=== PATIENT | male | born 1935 | race Caucasian/White ===

== ENCOUNTER 2016-07-21 10:39 | Emergency (ER) | payer MEDICARE, BC ==
[2016-07-21 12:26] VITALS: BP 130/64
--- NOTE | 2016-07-21 12:34 | UC ---
Ryann Vieira Claudia, scribed for Ann Singer MD on 07/21/16 at 1211 . General HPI - HPI Summary HPI Summary: 81 year old female presents to the [facility] with confusion. His son notes that a friend of the pt called him today and notes that the pt seemed to be more confused/"foggy" than usual . The son then went to the pt house and states that the pt was sleeping but his breathing seemed abnormal and decided he should come to [facility]. The pt does admit to 3 days of confusion and he states that "it just came on". Pt son states that the pt came back from [place] in May and notes that he has been having more difficulty especially with ambulation since. Pt denies any rashes, pain. Pt has a fever at [facility] but it is unknown if he has had one in the past. Pt notes that about 3 weeks ago he strained a muscle on his left chest when he bend over but he notes the muscle strain is feeling better. Level 5 caveat- confusion - History of Current Complaint Chief Complaint: UCGeneralIllness Stated Complaint: SOB CONFUSED Time Seen by Provider: 07/21/16 11:46 Hx Obtained From: Patient Onset/Duration: Gradual Onset, Lasting Days, Still Present - Allergy/Home Medications Allergies/Adverse Reactions: Allergies Allergy/AdvReac Type Severity Reaction Status Date / Time No Known Allergies Allergy Verified 07/21/16 11:09 Home Medications: Home Medications Atorvastatin* [Lipitor*] 10 mg PO 1700 07/21/16 [History Confirmed 07/21/16] Gemfibrozil TAB* [Lopid TAB*] 600 mg PO DAILY 07/21/16 [History Confirmed 07/21] PMH/Surg Hx/FS Hx/Imm Hx Previously Healthy: Yes Cardiovascular History Of: Reports: Cardiac Disorders - "hardened arteries.", Hypertension - used to take htn meds, was dc'd by md - Surgical History Surgical History: None - Family History Known Family History: Positive: Unknown - Level 5- confusion - Social History Occupation: Retired Lives: Alone Alcohol Use: None Substance Use Type: None Smoking Status (MU): Never Smoked Tobacco Review of Systems Constitutional: Fever Skin: Negative Eyes: Negative ENT: Negative Respiratory: Negative Cardiovascular: Negative Gastrointestinal: Negative Genitourinary: Negative Motor: Negative Neurovascular: Negative Musculoskeletal: Negative Neurological: Other - confusion Psychological: Negative All Other Systems Reviewed And Are Negative: Yes Physical Exam Triage Information Reviewed: Yes Completion Of Physical Exam Limited Due To: Other - Hard of hearing. Vital Signs: Initial Vital Signs Temp 100.9 F 07/21/16 10:58 Pulse 121 07/21/16 10:58 Resp 18 07/21/16 10:58 Pulse Ox 96 07/21/16 10:58 Vital Signs Reviewed: Yes Eye Exam: Normal - + arcus senilus ENT Exam: Other - muc membranes a little dry. No stridor. Facial expressions grossly symmetric. Neck exam: Normal - supple for age Respiratory Exam: Other - Bibasilar crackles R>L. No miki wheeze. Cardiovascular Exam: Other - HR approx 110's bpm, several irregular beats during examinaion, correlates with L rad pulse. Non-diaphoretic. Abdominal Exam: Normal Abdomen Description: Positive: Nontender - soft, ND, nontender. Musculoskeletal Exam: Other - ambulates slowly, per son his gait is "wobbly" compared with usual. Moves all 3 ext's. Distal ext's shiney ant tib, minimal edema, warm to touch. Neurological Exam: Other - Conversing easily, appopriately. + flight of ideas ( although +UTE, so difficult to ascertain). Unclear to what extent oriented (to person / place). Psychological Exam: Normal Skin Exam: Normal - no rash visible or reported. Diagnostics - EKG Cardiac Rate: NL - sinus 108 beats/min, MS 208 QTC 427 no old EKG for comparison Cardiac Rhythm: Sinus: Normal - no old EKG for comparison Course/Dx - Course Course Of Treatment: No new problems while in [facility]. D/w pt and son. Recommend ED evaluation and management. EMS offered and encouraged. They politely but firmly decline, son will drive POV. D/w ED. ([facility]). - Differential Dx - Multi-Symptom Provider Diagnoses: Mental status change. Weakness - Physician Notifications Discussed Patient Care With: Carlota Waggoner at [facility] [place] been made aware of the pt at 11am. The pt son will drive them to [facility] by private car even after encouraged to go by EMS Discharge - Discharge Plan Condition: Stable Disposition: TRANS HIGHER LVL OF CARE FAC Discharge Disposition Comment: [facility] via private car The documentation as recorded by the Ryann loera Claudia accurately reflects the service I personally performed and the decisions made by me, Ann Singer MD.
== END 2016-07-21 12:44 | disposition short-term general hospital (02) ==
LOC: UCEAST 10:39
DX: R41.82 Altered mental status, unspecified (principal); R53.1 Weakness
CPT/HCPCS: 81003; 93005; 99203; G0463

== ENCOUNTER 2016-07-21 13:04 | Inpatient (IN) | payer BC, MEDICARE ==
[2016-07-21] MEDS ORDERED: NS 0.9% 1000 ML* 1,000 ML IV ONE ×2 (13:59→15:20)
[2016-07-21] MEDS ORDERED: NS 0.9% 1000 ML* 1,000 ML IV SCH (14:00)
[2016-07-21 14:28] LABS: Hematocrit 27 % (42-52); Hemoglobin 8.9 g/dl (14.0-18.0); Mean Corpuscular HGB Conc 33 g/dl (31-36); Mean Corpuscular Hemoglobin 33 pg (27-31); Mean Corpuscular Volume 100 fL (80-94); Mean Platelet Volume 10 um3 (7.4-10.4); Red Blood Count 2.69 10^6/ul (4.0-5.4); Red Cell Distribution Width 15 % (10.5-15); White Blood Count 17.9 10^3/ul (3.5-10.8)
[2016-07-21 14:30] LABS: Comments Flag Yes
[2016-07-21 14:31] LABS: Add Diff/Slide Review? Slide Review Added
--- NOTE | 2016-07-21 14:36 | RAD ---
HISTORY: Fever COMPARISONS: None VIEWS:1: Single frontal portable view of the chest at 2:15 PM FINDINGS: LINES AND TUBES: None. CARDIOMEDIASTINAL SILHOUETTE: The cardiomediastinal silhouette is normal for portable technique. PLEURA: The costophrenic angles are sharp. No pleural abnormalities are noted. LUNG PARENCHYMA: There is confluent alveolar opacification of the right midlung field ABDOMEN: The upper abdomen is clear. There is no subphrenic gas. BONES AND SOFT TISSUES: No bone or soft tissue abnormalities are noted. IMPRESSION: RIGHT MIDLUNG CONSOLIDATION. RECOMMEND FOLLOW-UP UNTIL RESOLUTION TO EXCLUDE UNDERLYING PULMONARY PARENCHYMAL PATHOLOGY
[2016-07-21 14:45] LABS: ALT 33 U/L (7-52); Albumin 3.5 g/dL (3.2-5.2); Alkaline Phosphatase 139 U/L (34-104); Ammonia 39 mol/L (16-53); BUN/Creatinine Ratio 19.4 (8-20); Blood Urea Nitrogen 39 mg/dL (6-24); CO2 Carbon Dioxide 22 mmol/L (22-32); Calcium 9.4 mg/dL (8.6-10.3); Chloride 101 mmol/L (101-111); Creatine Kinase 88 U/L (10-223); EGFR Non-African American 31.9 (>60); Globulin 2.9 g/dL (2-4); Glucose 105 mg/dL (70-100); Lipase 27 U/L (11.0-82.0); Sodium 132 mmol/L (133-145); Total Protein 6.4 g/dL (6.4-8.9)
[2016-07-21] MEDS ORDERED: Acetaminophen TAB* 325 MG PO ONE (14:45)
[2016-07-21] MEDS ORDERED: Azithromycin IV(*) 500 MG in NS 0.9% 250 ML* 250 ML IVPB ONE ×2 (14:46→16:00)
[2016-07-21] MEDS ORDERED: cefTRIAXone(*) 1 GM in NS 0.9% 50 ML* 50 ML IVPB ONE (14:46)
[2016-07-21 14:48] LABS: B Type Natriuretic Peptide 275 pg/mL
[2016-07-21 14:56] LABS: Acetaminophen < 15 mcg/mL; Alcohol < 10 mg/dL (<10); Salicylate < 2.50 mg/dL (<30)
[2016-07-21 14:58] LABS: Immature Granulocytes 6 % (0-9); Neutrophil % 69 % (38-83)
[2016-07-21 14:59] LABS: Basophilic Stippling 1+; Macrocytosis 1+
[2016-07-21 15:06] LABS: TSH (Thyroid Stimulating Horm) 0.93 mcIU/mL (0.34-5.60)
[2016-07-21] MEDS ORDERED: Acetaminophen TAB* 325 MG PO PRN (15:20)
[2016-07-21] MEDS ORDERED: Ondansetron INJ* 2 MG/ML VIAL IV PRN (15:20)
[2016-07-21] MEDS ORDERED: Albuterol 2.5 MG/3 ML NEB.SOL* (0.083%) INH PRN (15:27)
[2016-07-21 15:49] LABS: Total Iron Binding Capacity 245 mcg/dL (250-450); Transferrin 175 mg/dL (203-362)
[2016-07-21 16:10] LABS: Ferritin 496.4 ng/mL (24-336)
[2016-07-21 16:14] LABS: Folate > 20.00 ng/mL (>3.99)
[2016-07-21 16:15] LABS: Vitamin B12 1250 pg/mL (180-914)
[2016-07-21] MEDS ORDERED: Aspirin Low Dose CHEW TAB* 81 MG PO ONE (16:16)
--- NOTE | 2016-07-21 16:17 | ED ---
Radha Vieira Erika, scribed for Dylon Johnston MD on 07/21/16 at 1435 . Complex/Multi-Sys Presentation - HPI Summary HPI Summary: Patient is an 81-year-old male presenting to the ED from [facility] with a CC of generalized weakness. Patient states that he has been feeling weak with unsteady gait since 07/17/2016. Son reports that pt appears to be having difficulty breathing, but pt denies SOB and chest pain. Pt also notes fever. Pt denies cough, chest congestion, vomiting, diarrhea, and abdominal pain. Pt lives alone. - History Of Current Complaint Chief Complaint: EDShortnessOfBreath Time Seen by Provider: 07/21/16 13:44 Hx Obtained From: Patient, Family/Natural History Collections Curator - Son Onset/Duration: Gradual Onset, Lasting Days, Still Present Timing: Constant Severity Currently: Moderate Severity Initially: Mild Associated Signs And Symptoms: Positive: SOB - per son, pt denies, Other - Unsteady gait. Negative: Chest Pain, Vomiting, Diarrhea, Abdominal Pain - Allergies/Home Medications Allergies/Adverse Reactions: Allergies Allergy/AdvReac Type Severity Reaction Status Date / Time No Known Allergies Allergy Verified 07/21/16 11:09 Home Medications: Home Medications Atorvastatin* [Lipitor*] 40 mg PO DAILY 07/21/16 [History Confirmed 07/21/16] Ramipril CAP* [Altace CAP*] 2.5 mg PO DAILY 07/21/16 [History Confirmed 07/21/16 ] PMH/Surg Hx/FS Hx/Imm Hx Endocrine/Hematology History: Denies: Hx Diabetes Cardiovascular History: Reports: Hx Hypertension - used to take htn meds, was dc 'd by Infectious Disease History: Denies: Traveled Outside the [place] in Last 30 Days - Family History Known Family History: Positive: Other - father of alcoholic liver cirrhosis Negative: Cardiac Disease, Diabetes - Social History Occupation: Retired Lives: Alone Alcohol Use: None Hx Substance Use: No Substance Use Type: Reports: None Hx Tobacco Use: No Smoking Status (MU): Never Smoked Tobacco Review of Systems Positive: Fever Negative: Chest Pain Positive: Shortness Of Breath - per son, pt denies. Negative: Cough Negative: Abdominal Pain, Vomiting, Diarrhea Neurological: Other - unsteady gait Positive: Weakness All Other Systems Reviewed And Are Negative: Yes Physical Exam Triage Information Reviewed: Yes Vital Signs On Initial Exam: Initial Vitals Temp Pulse Resp BP Pulse Ox 100.2 F 112 20 134/56 98 07/21/16 13:07 07/21/16 13:07 07/21/16 13:07 07/21/16 13:07 07/21/16 13:07 Vital Signs Reviewed: Yes Appearance: Positive: No Pain Distress, Ill-Appearing - Mild to moderately Skin: Positive: Warm, Dry, Pale Head/Face: Positive: Normal Head/Face Inspection Eyes: Positive: EOMI, EDI ENT: Positive: Normal ENT inspection, TMs normal, Other - Oral mucosa moist Neck: Positive: Supple, Nontender Respiratory/Lung Sounds: Positive: Clear to Auscultation, Decreased Breath Sounds - on the right side Cardiovascular: Positive: Tachycardia Abdomen Description: Positive: Nontender, Soft Bowel Sounds: Positive: Present Musculoskeletal: Positive: Normal, Strength/ROM Intact. Negative: Edema Left, Edema Right Neurological: Positive: Normal, Sensory/Motor Intact, Alert, Oriented to Person Place, Time Psychiatric: Positive: Affect/Mood Appropriate Diagnostics - Vital Signs Vital Signs Temp Pulse Resp BP Pulse Ox 07/21/16 13:10 100.2 F 114 20 134/56 98 07/21/16 13:07 100.2 F 112 20 134/56 98 - Laboratory Lab Results: Lab Results 07/21/16 07/21/16 07/21/16 Range/Units 14:15 14:15 14:15 WBC 17.9 H (3.5-10.8) 10^3/ul RBC 2.69 L (4.0-5.4) 10^6/ul Hgb 8.9 L (14.0-18.0) g/dl Hct 27 L (42-52) % MCV 100 H (80-94) fL MCH 33 H (27-31) pg MCHC 33 (31-36) g/dl RDW 15 (10.5-15) % Plt Count 230 (150-450) 10^3/ul MPV 10 (7.4-10.4) um3 Immature Gran % (Auto) 6 (0-9) % Neut % (Auto) 83.5 H (38-83) % Lymph % (Auto) 5.9 L (25-47) % Boone % (Auto) 9.9 H (1-9) % Eos % (Auto) 0.1 (0-6) % Baso % (Auto) 0.6 (0-2) % Absolute Neuts (auto) 15.0 H (1.5-7.7) 10^3/ul Absolute Lymphs (auto) 1.0 (1.0-4.8) 10^3/ul Absolute Monos (auto) 1.8 H (0-0.8) 10^3/ul Absolute Eos (auto) 0 (0-0.6) 10^3/ul Absolute Basos (auto) 0.1 (0-0.2) 10^3/ul Absolute Nucleated RBC 0.02 10^3/ul Neutrophils % 69 (38-83) % Band Neutrophils % 6 (0-8) % Lymphocytes % 13 L (25-47) % Monocytes % 12 (0-13) % Nucleated RBC % 0.1 Normal RBC Morphology Not Reportable Basophilic Stippling 1+ Macrocytosis 1+ INR (Anticoag Therapy) 1.43 H (0.89-1.11) APTT 28.5 (26.0-36.3) seconds D-Dimer, Quantitative 349 H (Less Than 230) ng/mL Sodium 132 L (133-145) mmol/L Potassium TNP Chloride 101 (101-111) mmol/L Carbon Dioxide 22 (22-32) mmol/L Anion Gap TNP BUN 39 H (6-24) mg/dL Creatinine 2.01 H (0.67-1.17) mg/dL Est GFR ( Amer) 41.0 (>60) Est GFR (Non-Af Amer) 31.9 (>60) BUN/Creatinine Ratio 19.4 (8-20) Glucose 105 H (70-100) mg/dL Lactic Acid (0.5-2.0) mmol/L Calcium 9.4 (8.6-10.3) mg/dL Magnesium TNP Iron Pending TIBC 245 L (250-450) mcg/dL % Saturation Pending Unsat Iron Binding Pending Ferritin 496.4 H (24-336) ng/mL Total Bilirubin 1.10 H (0.2-1.0) mg/dL AST TNP ALT 33 (7-52) U/L Alkaline Phosphatase 139 H (34-104) U/L Ammonia (16-53) mol/L Total Creatine Kinase 88 (10-223) U/L CK-MB (CK-2) 16.9 H (0.6-6.3) ng/mL Troponin I 1.20 H* (<0.04) ng/mL C-Reactive Protein 318.00 H (< 5.00) mg/L B-Natriuretic Peptide ( - 100) pg/mL Total Protein 6.4 (6.4-8.9) g/dL Albumin 3.5 (3.2-5.2) g/dL Globulin 2.9 (2-4) g/dL Albumin/Globulin Ratio 1.2 (1-3) Lipase 27 (11.0-82.0) U/L Vitamin B12 1250 H (180-914) pg/mL Folate > 20.00 (>3.99) ng/mL TSH 0.93 (0.34-5.60) mcIU/mL Salicylates < 2.50 (<30) mg/dL Acetaminophen < 15 mcg/mL Serum Alcohol < 10 (<10) mg/dL 07/21/16 07/21/16 Range/Units 14:15 14:15 WBC (3.5-10.8) 10^3/ul RBC (4.0-5.4) 10^6/ul Hgb (14.0-18.0) g/dl Hct (42-52) % MCV (80-94) fL MCH (27-31) pg MCHC (31-36) g/dl RDW (10.5-15) % Plt Count (150-450) 10^3/ul MPV (7.4-10.4) um3 Immature Gran % (Auto) (0-9) % Neut % (Auto) (38-83) % Lymph % (Auto) (25-47) % Boone % (Auto) (1-9) % Eos % (Auto) (0-6) % Baso % (Auto) (0-2) % Absolute Neuts (auto) (1.5-7.7) 10^3/ul Absolute Lymphs (auto) (1.0-4.8) 10^3/ul Absolute Monos (auto) (0-0.8) 10^3/ul Absolute Eos (auto) (0-0.6) 10^3/ul Absolute Basos (auto) (0-0.2) 10^3/ul Absolute Nucleated RBC 10^3/ul Neutrophils % (38-83) % Band Neutrophils % (0-8) % Lymphocytes % (25-47) % Monocytes % (0-13) % Nucleated RBC % Normal RBC Morphology Basophilic Stippling Macrocytosis INR (Anticoag Therapy) (0.89-1.11) APTT (26.0-36.3) seconds D-Dimer, Quantitative (Less Than 230) ng/mL Sodium (133-145) mmol/L Potassium Chloride (101-111) mmol/L Carbon Dioxide (22-32) mmol/L Anion Gap BUN (6-24) mg/dL Creatinine (0.67-1.17) mg/dL Est GFR ( Amer) (>60) Est GFR (Non-Af Amer) (>60) BUN/Creatinine Ratio (8-20) Glucose (70-100) mg/dL Lactic Acid 1.7 (0.5-2.0) mmol/L Calcium (8.6-10.3) mg/dL Magnesium Iron TIBC (250-450) mcg/dL % Saturation Unsat Iron Binding Ferritin (24-336) ng/mL Total Bilirubin (0.2-1.0) mg/dL AST ALT (7-52) U/L Alkaline Phosphatase (34-104) U/L Ammonia 39 (16-53) mol/L Total Creatine Kinase (10-223) U/L CK-MB (CK-2) (0.6-6.3) ng/mL Troponin I (<0.04) ng/mL C-Reactive Protein (< 5.00) mg/L B-Natriuretic Peptide 275 H ( - 100) pg/mL Total Protein (6.4-8.9) g/dL Albumin (3.2-5.2) g/dL Globulin (2-4) g/dL Albumin/Globulin Ratio (1-3) Lipase (11.0-82.0) U/L Vitamin B12 (180-914) pg/mL Folate (>3.99) ng/mL TSH (0.34-5.60) mcIU/mL Salicylates (<30) mg/dL Acetaminophen mcg/mL Serum Alcohol (<10) mg/dL Result Diagrams: 07/21/16 14:15 05/23/17 14:15 Lab Statement: Any lab studies that have been ordered have been reviewed, and results considered in the medical decision making process. - Radiology CXR Radiology Interpretation Completed By: Radiologist - IMPRESSION: RIGHT MIDLUNG CONSOLIDATION. RECOMMEND FOLLOW-UP UNTIL RESOLUTION TO EXCLUDE UNDERLYING PULMONARY PARENCHYMAL PATHOLOGY - EKG 14:38 Cardiac Rate: Tachycardia - at 109 bpm EKG Rhythm: Sinus Tachycardia ST Segment: Normal Ectopy: None Complex Multi-Symp Course/Dx Course Of Treatment: CRITICAL CARE TIME LESS THAN 30 MINUTES Assessment/Plan: ADMIT HOSPITALIST STABLE - Diagnoses Provider Diagnoses: Pneumonia, Troponin level elevated - Physician Notifications Discussed Care Of Patient With: Dr. Aguilar (hospitalist) at 14:51 - agrees to admit Discharge - Discharge Plan Condition: Guarded Disposition: ADMITTED TO [facility] documentation as recorded by the Radha loera Erika accurately reflects the service I personally performed and the decisions made by me, Dylon Johnston MD.
[2016-07-21 17:09] LABS: Urine Bacteria Absent (Absent); Urine Bilirubin Negative (Negative); Urine Glucose Negative (Negative); Urine Nitrite Negative (Negative)
[2016-07-21 17:42] LABS: Iron < 15 ug/dL (50-212)
[2016-07-21] MEDS: NS 0.9% 1000 ML* 1,000 ML IV SCH (18:07)
[2016-07-21] MEDS: Aspirin EC Low Dose* 81 MG TAB.EC PO SCH (18:08)
[2016-07-21] MEDS: predniSONE TAB* 20 MG PO SCH (18:08)
[2016-07-21] MEDS: Heparin VIAL(*) 5000 UNITS/ML VIAL (FIVE THOUSAND) SUBCUT SCH (21:34)
--- NOTE | 2016-07-21 22:37 | HP ---
HISTORY AND PHYSICAL: DATE OF ADMISSION: 07/21/16 PRIMARY CARE PROVIDER: Dr. López. ATTENDING PHYSICIAN WHILE IN THE HOSPITAL: Dr. Juan Aguilar* (report being dictated by Ken Bills NP). CHIEF COMPLAINT: 1. Weakness. 2. Not feeling well. 3. Fever. HISTORY OF PRESENT ILLNESS: Mr. Paredes is an 81-year-old male patient who carries a history of hypertension and hyperlipidemia. The patient came in to the ER today stating that the last several days he has not been feeling well. He has been feeling weak. He has been feeling tired. He just has not been feeling himself. The son noted today that the patient was on the phone with a family friend. He was acting confused acting himself, acting lethargic and drowsy. He says that he was concerned and brought him to [facility]. At [facility], there was concern and he was sent to the hospital for evaluation. The patient says that he has not had any chest pain. The son did note that he looked more short of breath today. There has not been any reports of cough, but there was report that over the weekend, he needed to turn the heat up in his house and needed to cover up with several blankets because he just could not get warm. He denies having any dysuria. No abdominal pain. Denies any back pain. Denies having any chest pain. He does state that he feels weak and has not been feeling well and he says his appetite has been down. He came in to the ER today. He was found to be febrile. He was found to have an elevated white count. He was found to be tachycardic. In addition to this, he was found to have pneumonia. Because of these findings, we were asked to evaluate for admission. PAST MEDICAL HISTORY: Significant for: 1. Hypertension. 2. Hyperlipidemia. PAST SURGICAL HISTORY: Denied. HOME MEDICATIONS: Include: 1. Ramipril 2.5 mg p.o. daily although he says he has stopped this. 2. Lopid 600 mg p.o. b.i.d. 3. Lipitor 40 mg daily. ALLERGIES TO MEDICATIONS: Include no known drug allergies. FAMILY HISTORY: The father had a history of cirrhosis. Mother's history was reviewed and noncontributory. SOCIAL HISTORY: He does not smoke. He lives alone. Surrogate decision maker is his son, Kip. He does not drink alcohol. REVIEW OF SYSTEMS: There is no documented fever. He denied having any significant weight change. There was no double vision. There was no ear discharge. He denied having any rhinorrhea. There was no sore throat. There is no thyroid enlargement. Denied having any chest pain. There is no orthopnea. There is no nocturnal dyspnea. There is no abdominal pain. There was no nausea. No vomiting. No dysuria. No frequency. There was no seizure. No loss of consciousness. There was dyspnea on exertion. Review of 14 systems completed, all others negative. PHYSICAL EXAMINATION GENERAL: At this time, Mr. Paredes is an 81-year-old male patient. He is sitting in the ER stretcher. He does not appear to be in any acute distress. He is awake and he is alert and oriented x3. VITAL SIGNS: Blood pressure 134/51 with a pulse of 110, respirations were 20, O2 sat 98% on room air. His temperature was 101.4. HEENT: Head is atraumatic and normocephalic. Eyes: EOMs are intact. His sclerae are anicteric and not pale. Throat: Oral mucosa did appear to be dry. No oropharyngeal erythema. NECK: Supple. LUNGS: He had crackles noted in the right upper and right middle lobe. He had equal diaphragmatic expansion. HEART: Sounds S1, S2. Regular rate and rhythm. He is tachycardic. ABDOMEN: Soft, flat, and nontender. Bowel sounds present. EXTREMITIES: Pulses were 2+ throughout. Able to move all 4 extremities with 5/ 5 strength. NEUROLOGIC: The patient is awake, he is alert, and he is oriented x3. His tongue is midline. Paralegal Assistant are equal. No gross focal deficits. SKIN: Intact. LABORATORY DATA AND DIAGNOSTIC STUDIES: Today revealed WBC of 17.9, RBC of 2.69, hemoglobin of 8.9, hematocrit of 27, and his platelet count was 230. The INR was 1.43. His PTT was 28.5. His D-dimer was 349. Sodium 132, potassium pending, chloride 101, bicarb 22, BUN 39, creatinine of 2, glucose of 105, his lactic was 1.7, calcium of 9.4. His mag is pending. His total bili 1.1, AST pending, ALT 33, alk phos 139. Ammonia 39. CK 88. His CK-MB was 16.2. His troponin was 1.20. CRP of 318. Albumin of 3.5. Toxicology was negative. He did have a chest x-ray obtained today, my impression: He had a significant consolidation in the right middle lobe. Radiology read it as right mid lung consolidation. Recommend followup until resolution to exclude underlying pulmonary parenchymal pathology. He did have an EKG obtained today as well, which showed sinus tachycardia, rate of 109. He had no ST elevations or T-wave inversions. It was reviewed to the previous EKG, it is similar. Old medical records were reviewed. ASSESSMENT AND PLAN: Mr. Paredes is an 81-year-old male patient coming into the ER today with complaints of weakness and upon evaluation found to be septic related to pneumonia. He will be admitted under inpatient status for: 1. Severe sepsis secondary to pneumonia: At this point, he appears to be in acute kidney injury. He has demand ischemia and his troponin is elevated. My plan will be to go ahead and give him an additional liter of a fluid for total 2 L bolus and normal saline at 100 an hour for another liter. We will put him on Rocephin and azithromycin. He has had blood cultures sent. We will try to get a Streptococcus pneumoniae antigen. I will send a Legionella antigen as well. We will try to get a urine, but again, I believe the source is respiratory and I will get a flu swab and we will continue to follow. 2. Acute kidney injury probably related to prerenal causes, but I will send off a FENa. He is not having any abdominal pain. I will get a bladder scan to make sure this has not been postobstructive, but most likely it is probably related to prerenal. It may be some acute tubular necrosis secondary to the sepsis. My plan would be to hydrate him, reevaluate the labs tomorrow, avoid nephrotoxic agent, and we will follow. 3. Elevated troponin: It is probably demand ischemia. He is chest pain free. His EKG has been stable. We will trend these and get an echo and follow and I will start him on an aspirin. 4. Pneumonia: Again, he will be placed on p.r.n. albuterol. I have ordered flutter valve. We will try to get sputum cultures. We will get urine antigens from the patient. In addition to this, we will try to get the sputum cultures. 5. Anemia: Again, I do not have his baseline labs, but his hemoglobin is 8.9. He does have a macrocytic anemia. I will send off iron studies and a Hemoccult, but he denied any black tarry stools. 6. Hyperlipidemia: We will continue his statin. 7. Hypertension: Blood pressure is in the 130s. We will hold the SUKUMAR inhibitor in the setting of acute illness. We will follow. 8. DVT prophylaxis: He is high risk. He will be placed on heparin subcu. 9. Code status: He wished to be a full code. 10. Fluids, electrolytes, and nutrition: He can have a regular diet. 11. Elevated D-dimer: It is probably elevated in the setting of sepsis. I do not think we need to do CTA frankly, the contrast dye he cannot have have because of his creatinine. We will just monitor him. He is not hypoxic. There are no other signs of a pulmonary embolus. TIME SPENT: Time spent on the admission was approximately 60 minutes; greater than half the time was spent [id number] with the patient obtaining my history and physical, other half the time spent going over the plan of care with the patient and implementing plan of care. I did discuss the plan of care with my attending, Dr. Aguilar; he is in agreement. KEN BILLS NP CC: Dr. López* [id number]/[facility] #: [id number] EUN
[2016-07-22 05:33] LABS: Hematocrit 24 % (42-52); Hemoglobin 8.2 g/dl (14.0-18.0); Mean Corpuscular HGB Conc 34 g/dl (31-36); Mean Corpuscular Hemoglobin 34 pg (27-31); Mean Corpuscular Volume 101 fL (80-94); Mean Platelet Volume 9 um3 (7.4-10.4); Red Blood Count 2.42 10^6/ul (4.0-5.4); Red Cell Distribution Width 15 % (10.5-15); White Blood Count 9.7 10^3/ul (3.5-10.8)
[2016-07-22] MEDS: NS 0.9% 1000 ML* 1,000 ML IV SCH (05:36)
[2016-07-22] MEDS: Heparin VIAL(*) 5000 UNITS/ML VIAL (FIVE THOUSAND) SUBCUT SCH ×3 (05:37→21:33)
[2016-07-22 05:47] LABS: BUN/Creatinine Ratio 26.2 (8-20); Calcium 8.6 mg/dL (8.6-10.3); EGFR African American 51.9 (>60); EGFR Non-African American 40.3 (>60); Potassium 4.5 mmol/L (3.5-5.0)
[2016-07-22] MEDS: Atorvastatin* 40 MG TAB PO SCH (07:51)
[2016-07-22] MEDS: Aspirin EC Low Dose* 81 MG TAB.EC PO SCH (07:51)
[2016-07-22] MEDS: predniSONE TAB* 20 MG PO SCH (07:51)
[2016-07-22] MEDS ORDERED: Perflutren Lipid Microsphere* 3 ML VIAL ONE (10:02)
--- NOTE | 2016-07-22 11:35 | ECHO ---
Patient: JENISE MCDANIEL [facility] Rec#: [id number] : 1935 Date: 07/22/2016 Age: 81y Height: 177.8 cm / 70.0 in Weight: 74.84 kg / 164.9 lbs Sex: M BSA: 1.92 Room#: [facility] Admit Date#: 07/21/2016 Type: Inpatient Referring: Ken Antonio NP Reading: Margaret Villafana MD [employer] Director: Trista Mosher RDCS CC: Randall López MD Transthoracic Echocardiogram Indication: Respiratory Abnormality BP: 121/58 HR: 65 Rhythm: NSR Findings History: HLD,HTN,elevated troponins,sepsis. Technical Comments: The study is technically limited due to poor apical windows. Left Ventricle: The left ventricular chamber size is normal. There is no left ventricular hypertrophy. Global left ventricular wall motion and contractility are within normal limits.The very base of the inferior wall on 2 chamber with and without echo contrast shows a mild delay in systolic squeeze, varient of normal. The estimated ejection fraction is 50-55%. There is an E to A reversal in the mitral valve flow pattern suggestive of diastolic dysfunction.overall diastolic parameters most c/w mildly abnormal diastolic filling. Left Atrium: The left atrial chamber size is normal. Right Ventricle: The right ventricular cavity size is normal. The right ventricular global systolic function is normal. Right Atrium: The right atrial cavity size is normal. Aortic Valve: The aortic valve is trileaflet. The aortic valve leaflets are mildly thickened. There is no evidence of aortic regurgitation. There is no evidence of aortic stenosis. Mitral Valve: The mitral valve leaflets are mildly thickened. There is mild mitral regurgitation. There is no evidence of mitral stenosis. Tricuspid Valve: The tricuspid valve leaflets are normal. There is mild tricuspid regurgitation. No pulmonary hypertension is noted. There is no tricuspid stenosis. Pulmonic Valve: The pulmonic valve appears normal. There is trace to mild pulmonic regurgitation. There is no pulmonic stenosis. Pericardium: The pericardium appears normal. Aorta: There is mild dilatation of the ascending aorta. There is no dilatation of the aortic arch. There is mild dilatation of the aortic root. Pulmonary Artery: The main pulmonary artery is not well visualized. Contrast: Definity was used to optimize study. 4ml. was used. Intravenous contrast was used to enhance endocardial border definition. Conclusions Fair qulity study due to body habitus, echo enhancement used to optimize endocardial visualization. Global left ventricular wall motion and contractility are within normal limits, see text. The estimated ejection fraction is 50-55%. The diastolic parameters most c/w mildly abnormal diastolic filling. The right ventricular global systolic function is normal. The aortic valve leaflets are mildly thickened with normal function. There is mild mitral regurgitation. There is mild tricuspid regurgitation. There is mild dilatation of the ascending aorta: 3.8 cm. No prior echo to compare. Measurements Name Value Normal Range RVIDd (AP) 2D 2.3 cm (0.9 - 2.6) RVDdMajor (2D) 3 cm (2.2 - 4.4) RAd ISD 4CH 4.7 cm (3.4 - 4.9) RA (A4C)W 2.5 cm (2.9 - 4.6) IVSd (2D) 1.1 cm (0.6 - 1) LVPWd (2D) 1.1 cm (0.6 - 1) LVIDd (2D) 3.5 cm (3.6 - 5.4) LVIDs (2D) 2.8 cm - LV FS (2D) 19 % (25 - 45) Aortic Annulus 2.7 cm (1.4 - 2.6) Ao root diameter (2D) 3.8 cm (2.1 - 3.5) Ascending Ao 3.8 cm (2.1 - 3.4) Aortic arch 2.3 cm (1.8 - 3.4) Descending Ao 0.6 cm - LA dimension (AP) 2D 3.6 cm (2.3 - 3.8) LAd ISD 4CH 5.5 cm (2.9 - 5.3) LA ISD 4CH W 3.3 cm (2.5 - 4.5) Name Value Normal Range LA ESV SP 4CH (A/L) 50 ml - LA ESV SP 2CH (A/L) 59 ml - LA ESV BP (A/L) 57 ml - LA ESV BP (A/L) index 29.54 ml/m2 - LA ESV SP 4CH (MOD) 48 ml - LA ESV SP 2CH (MOD) 55 ml - Name Value Normal Range MV E-wave Vmax 1.1 m/sec - MV deceleration time 172 msec - MV A-wave Vmax 1.4 m/sec - MV E:A ratio 0.79 ratio - LV septal e' Vmax 0.1 m/sec - LV lateral e' Vmax 0.11 m/sec - LV E:e' septal ratio 11 ratio - LV E:e' lateral ratio 10 ratio - Name Value Normal Range AV Vmax 1.4 m/sec - AV VTI 40.1 cm - AV peak gradient 7.5 mmHg - AV mean gradient 6.22 mmHg - LVOT Vmax 1.2 m/sec - LVOT VTI 25 cm - LVOT peak gradient 6.01 mmHg - LVOT mean gradient 2.38 mmHg - Name Value Normal Range TR Vmax 2.2 m/sec - TR peak gradient 20 mmHg - RAP 8 mmHg - RVSP 28 mmHg - Name Value Normal Range PV Vmax 0.8 m/sec - PV peak gradient 2.56 mmHg -
[2016-07-22] MEDS: cefTRIAXone VIAL(*) 1,000 MG in NS 0.9% 50 ML* 50 ML IVPB SCH (15:46)
--- NOTE | 2016-07-22 16:25 | PN ---
Subjective Date of Service: 07/22/16 Interval History: Patient seen and examined at bedside. He reports "feeling fine." He denies CP, SOB but has not been up and moving much. Denies fever/chills or other acute complaint. Patient not requiring oxygen. He has been encouraged to get OOB and to ambulate with assist. Family History: Unchanged from Admission Social History: Unchanged from Admission Past Medical History: Unchanged from Admission Objective Active Medications: Acetaminophen (Tylenol Tab*) 650 mg PO Q4H PRN PRN Reason: FEVER/PAIN Albuterol (Ventolin 2.5 Mg/3 Ml Neb.Angely*) 2.5 mg INH Q2H PRN PRN Reason: SOB/WHEEZING Aspirin (Aspirin Ec Low Dose*) 81 mg PO DAILY [facility] Last Admin: 07/22/16 07:51 Dose: 81 mg Atorvastatin Calcium (Lipitor*) 40 mg PO DAILY [facility] Last Admin: 07/22/16 07:51 Dose: 40 mg Heparin Sodium (Porcine) (Heparin Vial(*)) 5,000 units SUBCUT Q8HR [facility] Last Admin: 07/22/16 13:38 Dose: 5,000 units Sodium Chloride (Ns 0.9% 1000 Ml*) 1,000 mls @ 100 mls/hr IV PER RATE [facility] Last Admin: 07/22/16 05:36 Dose: 100 mls/hr Ceftriaxone Sodium 1,000 mg/ (Sodium Chloride) 50 mls @ 200 mls/hr IVPB Q24H [facility] Last Admin: 07/22/16 15:46 Dose: 200 mls/hr Azithromycin 500 mg/ Sodium (Chloride) 250 mls @ 250 mls/hr IVPB Q24H [facility] Ondansetron HCl (Zofran Inj*) 4 mg IV Q6H PRN PRN Reason: NAUSEA Prednisone (Deltasone Tab*) 40 mg PO DAILY WITH MEAL [facility] Last Admin: 07/22/16 07:51 Dose: 40 mg Vital Signs 07/21/16 07/21/16 07/21/16 16:30 17:20 20:00 Temperature 98.8 F Pulse Rate 86 94 Respiratory 16 20 Rate Blood Pressure 112/47 119/63 (mmHg) O2 Sat by Pulse 92 95 Oximetry 07/21/16 07/22/16 07/22/16 20:34 00:12 03:36 Temperature 97.9 F 97.7 F 97.7 F Pulse Rate 76 69 70 Respiratory 20 16 20 Rate Blood Pressure 116/49 138/98 129/61 (mmHg) O2 Sat by Pulse 100 96 99 Oximetry 07/22/16 07/22/16 07/22/16 07:25 07:26 08:20 Temperature Pulse Rate 66 75 Respiratory 16 20 18 Rate Blood Pressure 121/58 (mmHg) O2 Sat by Pulse 99 94 Oximetry 07/22/16 07/22/16 11:13 15:23 Temperature 98.3 F 97.4 F Pulse Rate 91 88 Respiratory 20 16 Rate Blood Pressure 127/59 123/61 (mmHg) O2 Sat by Pulse 95 98 Oximetry Oxygen Devices in Use Now: None Appearance: Elderly male patient, lying in bed, NAD Eyes: PERRLA Ears/Nose/Mouth/Throat: Clear Oropharnyx, Mucous Membranes Moist Neck: NL Appearance and Movements; NL JVP Respiratory: Symmetrical Chest Expansion and Respiratory Effort, - - RML and RLL crackles Cardiovascular: NL Sounds; No Murmurs; No JVD, RRR Abdominal: NL Sounds; No Tenderness; No Distention Extremities: No Edema Neurological: Alert and Oriented x 3, NL Muscle Strength and Tone Lines/Tubes/Other Access: Clean, Dry and Intact Peripheral IV Nutrition: Taking PO's Result Diagrams: 07/22/16 05:00 07/22/16 05:01 Additional Lab and Data: Lab Results 07/21/16 07/21/16 07/21/16 Range/Units 14:15 14:15 14:15 WBC 17.9 H (3.5-10.8) 10^3/ul RBC 2.69 L (4.0-5.4) 10^6/ul Hgb 8.9 L (14.0-18.0) g/dl Hct 27 L (42-52) % MCV 100 H (80-94) fL MCH 33 H (27-31) pg MCHC 33 (31-36) g/dl RDW 15 (10.5-15) % Plt Count 230 (150-450) 10^3/ul MPV 10 (7.4-10.4) um3 Immature Gran % (Auto) 6 (0-9) % Neut % (Auto) 83.5 H (38-83) % Lymph % (Auto) 5.9 L (25-47) % Hampton % (Auto) 9.9 H (1-9) % Eos % (Auto) 0.1 (0-6) % Baso % (Auto) 0.6 (0-2) % Absolute Neuts (auto) 15.0 H (1.5-7.7) 10^3/ul Absolute Lymphs (auto) 1.0 (1.0-4.8) 10^3/ul Absolute Monos (auto) 1.8 H (0-0.8) 10^3/ul Absolute Eos (auto) 0 (0-0.6) 10^3/ul Absolute Basos (auto) 0.1 (0-0.2) 10^3/ul Absolute Nucleated RBC 0.02 10^3/ul Neutrophils % 69 (38-83) % Band Neutrophils % 6 (0-8) % Lymphocytes % 13 L (25-47) % Monocytes % 12 (0-13) % Nucleated RBC % 0.1 Normal RBC Morphology Not Reportable Basophilic Stippling 1+ Macrocytosis 1+ INR (Anticoag Therapy) 1.43 H (0.89-1.11) APTT 28.5 (26.0-36.3) seconds D-Dimer, Quantitative 349 H (Less Than 230) ng/mL Sodium 132 L (133-145) mmol/L Potassium TNP Chloride 101 (101-111) mmol/L Carbon Dioxide 22 (22-32) mmol/L Anion Gap TNP BUN 39 H (6-24) mg/dL Creatinine 2.01 H (0.67-1.17) mg/dL Est GFR ( Amer) 41.0 (>60) Est GFR (Non-Af Amer) 31.9 (>60) BUN/Creatinine Ratio 19.4 (8-20) Glucose 105 H (70-100) mg/dL Lactic Acid (0.5-2.0) mmol/L Calcium 9.4 (8.6-10.3) mg/dL Magnesium TNP Iron Pending TIBC 245 L (250-450) mcg/dL % Saturation Pending Unsat Iron Binding Pending Ferritin 496.4 H (24-336) ng/mL Total Bilirubin 1.10 H (0.2-1.0) mg/dL AST TNP ALT 33 (7-52) U/L Alkaline Phosphatase 139 H (34-104) U/L Ammonia (16-53) mol/L Total Creatine Kinase 88 (10-223) U/L CK-MB (CK-2) 16.9 H (0.6-6.3) ng/mL Troponin I 1.20 H* (<0.04) ng/mL C-Reactive Protein 318.00 H (< 5.00) mg/L B-Natriuretic Peptide ( - 100) pg/mL Total Protein 6.4 (6.4-8.9) g/dL Albumin 3.5 (3.2-5.2) g/dL Globulin 2.9 (2-4) g/dL Albumin/Globulin Ratio 1.2 (1-3) Lipase 27 (11.0-82.0) U/L Vitamin B12 1250 H (180-914) pg/mL Folate > 20.00 (>3.99) ng/mL TSH 0.93 (0.34-5.60) mcIU/mL Salicylates < 2.50 (<30) mg/dL Acetaminophen < 15 mcg/mL Serum Alcohol < 10 (<10) mg/dL 07/21/16 07/21/16 Range/Units 14:15 14:15 WBC (3.5-10.8) 10^3/ul RBC (4.0-5.4) 10^6/ul Hgb (14.0-18.0) g/dl Hct (42-52) % MCV (80-94) fL MCH (27-31) pg MCHC (31-36) g/dl RDW (10.5-15) % Plt Count (150-450) 10^3/ul MPV (7.4-10.4) um3 Immature Gran % (Auto) (0-9) % Neut % (Auto) (38-83) % Lymph % (Auto) (25-47) % Hampton % (Auto) (1-9) % Eos % (Auto) (0-6) % Baso % (Auto) (0-2) % Absolute Neuts (auto) (1.5-7.7) 10^3/ul Absolute Lymphs (auto) (1.0-4.8) 10^3/ul Absolute Monos (auto) (0-0.8) 10^3/ul Absolute Eos (auto) (0-0.6) 10^3/ul Absolute Basos (auto) (0-0.2) 10^3/ul Absolute Nucleated RBC 10^3/ul Neutrophils % (38-83) % Band Neutrophils % (0-8) % Lymphocytes % (25-47) % Monocytes % (0-13) % Nucleated RBC % Normal RBC Morphology Basophilic Stippling Macrocytosis INR (Anticoag Therapy) (0.89-1.11) APTT (26.0-36.3) seconds D-Dimer, Quantitative (Less Than 230) ng/mL Sodium (133-145) mmol/L Potassium Chloride (101-111) mmol/L Carbon Dioxide (22-32) mmol/L Anion Gap BUN (6-24) mg/dL Creatinine (0.67-1.17) mg/dL Est GFR ( Amer) (>60) Est GFR (Non-Af Amer) (>60) BUN/Creatinine Ratio (8-20) Glucose (70-100) mg/dL Lactic Acid 1.7 (0.5-2.0) mmol/L Calcium (8.6-10.3) mg/dL Magnesium Iron TIBC (250-450) mcg/dL % Saturation Unsat Iron Binding Ferritin (24-336) ng/mL Total Bilirubin (0.2-1.0) mg/dL AST ALT (7-52) U/L Alkaline Phosphatase (34-104) U/L Ammonia 39 (16-53) mol/L Total Creatine Kinase (10-223) U/L CK-MB (CK-2) (0.6-6.3) ng/mL Troponin I (<0.04) ng/mL C-Reactive Protein (< 5.00) mg/L B-Natriuretic Peptide 275 H ( - 100) pg/mL Total Protein (6.4-8.9) g/dL Albumin (3.2-5.2) g/dL Globulin (2-4) g/dL Albumin/Globulin Ratio (1-3) Lipase (11.0-82.0) U/L Vitamin B12 (180-914) pg/mL Folate (>3.99) ng/mL TSH (0.34-5.60) mcIU/mL Salicylates (<30) mg/dL Acetaminophen mcg/mL Serum Alcohol (<10) mg/dL Microbiology and Other Data: Microbiology 07/21/16 16:50 Legionella Urinary Antigen - Final Urine Negative Legionella Streptococcus pneumoniae Ag Screen - Final Negative S. pneumo Antigen 07/21/16 16:20 Influenza Types A,B Antigen (ESTRADA) - Final Nasal Specimen received for Influenza A/B Molecular testing Assess/Plan/Problems-Billing Assessment: Mr. Paredes is an 81 yo male with a PMH of HTN and HLD who presented on with concern for weakness, fever/chills, and generalized malaise and was found to have RML pneumonia, as well as an elevated troponin, anemia, and CHERRY. - Patient Problems (1) Community acquired pneumonia Code(s): J18.9 - PNEUMONIA, UNSPECIFIED ORGANISM Comment: Leukocytosis improved, afebrile Legionella and s. pneumo antigens negative Continue ceftriaxone and azithromycin Supportive care (2) Elevated troponin Status: Acute Code(s): R74.8 - ABNORMAL LEVELS OF OTHER SERUM ENZYMES Comment: Suspect secondary to demand ischemia from sepsis No ischemic EKG changes Echo shows EF 50-55%, abnormal diastolic filling pattern, mild MR and TR Patient denies CP. (3) Sepsis Comment: Patient meets SIRS criteria with fever and elevated WBC count. Patient meets SOFA criteria with a score of 2 for elevated creatinine. Source is likely RML pneumonia. Continue ceftriaxone and azithromycin. (4) Acute kidney injury Code(s): N17.9 - ACUTE KIDNEY FAILURE, UNSPECIFIED Comment: FENa calculated a 0.5%, indicating pre-renal causes, likely sepsis and hypovolemia. Improving, continue IVF. Continue to follow BMP. (5) Anemia Code(s): D64.9 - ANEMIA, UNSPECIFIED Comment: HH stable at this time, unknown etiology Patient with macrocytosis and anemia of unknown chronicity. Vitamin B12 and folate normal. Serum iron low, TIBC mildly decreased, ferritin elevated. Will check LFTs, reticulocyte count, LDH. Stool occult pending. Patient denies ETOH use. (6) HTN (hypertension) Code(s): I10 - ESSENTIAL (PRIMARY) HYPERTENSION Comment: Ramipril on hold, patient is normotensive. (7) HLD (hyperlipidemia) Code(s): E78.5 - HYPERLIPIDEMIA, UNSPECIFIED Comment: Continue atorvastatin. (8) DVT prophylaxis Code(s): [id number] - Comment: SQ heparin Status and Disposition: Inpatient admission. D/c to home when medically stable.
[2016-07-22] MEDS: Azithromycin IV(*) 500 MG in NS 0.9% 250 ML* 250 ML IVPB SCH (16:27)
[2016-07-22] MEDS ORDERED: Ferrous Sulfate TAB* 325 MG PO SCH (17:00)
[2016-07-22] MEDS ORDERED: NS 0.9% 1000 ML* 1,000 ML IV SCH (17:43)
[2016-07-23] MEDS: Heparin VIAL(*) 5000 UNITS/ML VIAL (FIVE THOUSAND) SUBCUT SCH ×4 (05:04→20:57)
[2016-07-23 05:34] LABS: Corrected Retic Count 1.4 % (0.5-1.5); Hematocrit 24 % (42-52); Hemoglobin 7.7 g/dl (14.0-18.0); Immature Retic Fraction 0.53; Mean Corpuscular HGB Conc 33 g/dl (31-36); Mean Corpuscular Hemoglobin 34 pg (27-31); Mean Corpuscular Volume 103 fL (80-94); Mean Platelet Volume 10 um3 (7.4-10.4); Red Blood Count 2.29 10^6/ul (4.0-5.4); Red Cell Distribution Width 15 % (10.5-15); White Blood Count 13.3 10^3/ul (3.5-10.8)
[2016-07-23 05:35] LABS: Add Diff/Slide Review? Slide Review Added; Comments Flag Yes
[2016-07-23 05:47] LABS: Albumin 2.8 g/dL (3.2-5.2); BUN/Creatinine Ratio 33.3 (8-20); C Reactive Protein 171.33 mg/L (< 5.00); Calcium 8.6 mg/dL (8.6-10.3); Direct Bilirubin 0.1 mg/dL (0.03-0.18); EGFR African American 66.6 (>60); EGFR Non-African American 51.8 (>60); Globulin 2.3 g/dL (2-4); Indirect Bilirubin 0.2 mg/dL (0.3-1.0); Potassium 4.2 mmol/L (3.5-5.0); Total Bilirubin 0.3 mg/dL (0.2-1.0); Total Protein 5.1 g/dL (6.4-8.9)
[2016-07-23 06:36] LABS: Hypochromasia 1+; Immature Granulocytes 10 % (0-9); Macrocytosis 1+; Metamyelocytes % 2 % (0-2); Microcytosis 1+; Myelocytes % 1 % (0-1); Neutrophil % 76 % (38-83); Polychromasia 1+; Reactive Lymph % 2 % (0-6)
[2016-07-23] MEDS: predniSONE TAB* 20 MG PO SCH (08:25)
[2016-07-23] MEDS: Aspirin EC Low Dose* 81 MG TAB.EC PO SCH (08:26)
[2016-07-23] MEDS: Atorvastatin* 40 MG TAB PO SCH (08:26)
--- NOTE | 2016-07-23 12:22 | PN ---
Subjective Date of Service: 07/23/16 Interval History: Patient seen and examined at bedside. He denies fever/chills, CP, SOB, abd pain, n/v. He still reports getting easily fatigued with ambulation. Patient lives alone in a 2 story home; states that his son and a tenant "check in on him from time to time." States he doesn't eat much but has eaten more here, giving him some loose stools. No other acute complaints. Family History: Unchanged from Admission Social History: Unchanged from Admission Past Medical History: Unchanged from Admission Objective Active Medications: Acetaminophen (Tylenol Tab*) 650 mg PO Q4H PRN PRN Reason: FEVER/PAIN Albuterol (Ventolin 2.5 Mg/3 Ml Neb.Angely*) 2.5 mg INH Q2H PRN PRN Reason: SOB/WHEEZING Aspirin (Aspirin Ec Low Dose*) 81 mg PO DAILY [facility] Last Admin: 07/23/16 08:26 Dose: 81 mg Atorvastatin Calcium (Lipitor*) 40 mg PO DAILY [facility] Last Admin: 07/23/16 08:26 Dose: 40 mg Heparin Sodium (Porcine) (Heparin Vial(*)) 5,000 units SUBCUT Q8HR [facility] Last Admin: 07/23/16 05:04 Dose: 5,000 units Ceftriaxone Sodium 1,000 mg/ (Sodium Chloride) 50 mls @ 200 mls/hr IVPB Q24H [facility] Last Admin: 07/22/16 15:46 Dose: 200 mls/hr Azithromycin 500 mg/ Sodium (Chloride) 250 mls @ 250 mls/hr IVPB Q24H [facility] Last Admin: 07/22/16 16:27 Dose: 250 mls/hr Sodium Chloride (Ns 0.9% 1000 Ml*) 1,000 mls @ 100 mls/hr IV PER RATE [facility] Last Admin: 07/23/16 05:03 Dose: 100 mls/hr Ondansetron HCl (Zofran Inj*) 4 mg IV Q6H PRN PRN Reason: NAUSEA Prednisone (Deltasone Tab*) 40 mg PO DAILY WITH MEAL [facility] Last Admin: 07/23/16 08:25 Dose: 40 mg Vital Signs 07/22/16 07/22/16 07/22/16 15:23 19:24 19:59 Temperature 97.4 F 98.3 F Pulse Rate 88 96 Respiratory 16 20 16 Rate Blood Pressure 123/61 146/58 (mmHg) O2 Sat by Pulse 98 98 Oximetry 07/22/16 07/23/16 07/23/16 23:43 00:27 03:30 Temperature 97.8 F 98.2 F Pulse Rate 84 92 77 Respiratory 20 20 16 Rate Blood Pressure 133/56 113/41 (mmHg) O2 Sat by Pulse 99 98 97 Oximetry 07/23/16 07:28 Temperature Pulse Rate Respiratory 20 Rate Blood Pressure (mmHg) O2 Sat by Pulse Oximetry Oxygen Devices in Use Now: None Appearance: Elderly male, lying in bed, NAD Eyes: PERRLA Ears/Nose/Mouth/Throat: Mucous Membranes Moist Neck: NL Appearance and Movements; NL JVP Respiratory: Symmetrical Chest Expansion and Respiratory Effort, - - RML, RLL crackles Cardiovascular: NL Sounds; No Murmurs; No JVD, RRR Abdominal: NL Sounds; No Tenderness; No Distention Extremities: No Edema Neurological: Alert and Oriented x 3 Lines/Tubes/Other Access: Clean, Dry and Intact Peripheral IV Nutrition: Taking PO's Result Diagrams: 07/23/16 05:19 07/23/16 05:19 Additional Lab and Data: Lab Results 07/21/16 07/21/16 07/21/16 Range/Units 14:15 14:15 14:15 WBC 17.9 H (3.5-10.8) 10^3/ul RBC 2.69 L (4.0-5.4) 10^6/ul Hgb 8.9 L (14.0-18.0) g/dl Hct 27 L (42-52) % MCV 100 H (80-94) fL MCH 33 H (27-31) pg MCHC 33 (31-36) g/dl RDW 15 (10.5-15) % Plt Count 230 (150-450) 10^3/ul MPV 10 (7.4-10.4) um3 Immature Gran % (Auto) 6 (0-9) % Neut % (Auto) 83.5 H (38-83) % Lymph % (Auto) 5.9 L (25-47) % Larue % (Auto) 9.9 H (1-9) % Eos % (Auto) 0.1 (0-6) % Baso % (Auto) 0.6 (0-2) % Absolute Neuts (auto) 15.0 H (1.5-7.7) 10^3/ul Absolute Lymphs (auto) 1.0 (1.0-4.8) 10^3/ul Absolute Monos (auto) 1.8 H (0-0.8) 10^3/ul Absolute Eos (auto) 0 (0-0.6) 10^3/ul Absolute Basos (auto) 0.1 (0-0.2) 10^3/ul Absolute Nucleated RBC 0.02 10^3/ul Neutrophils % 69 (38-83) % Band Neutrophils % 6 (0-8) % Lymphocytes % 13 L (25-47) % Monocytes % 12 (0-13) % Nucleated RBC % 0.1 Normal RBC Morphology Not Reportable Basophilic Stippling 1+ Macrocytosis 1+ INR (Anticoag Therapy) 1.43 H (0.89-1.11) APTT 28.5 (26.0-36.3) seconds D-Dimer, Quantitative 349 H (Less Than 230) ng/mL Sodium 132 L (133-145) mmol/L Potassium TNP Chloride 101 (101-111) mmol/L Carbon Dioxide 22 (22-32) mmol/L Anion Gap TNP BUN 39 H (6-24) mg/dL Creatinine 2.01 H (0.67-1.17) mg/dL Est GFR ( Amer) 41.0 (>60) Est GFR (Non-Af Amer) 31.9 (>60) BUN/Creatinine Ratio 19.4 (8-20) Glucose 105 H (70-100) mg/dL Lactic Acid (0.5-2.0) mmol/L Calcium 9.4 (8.6-10.3) mg/dL Magnesium TNP Iron Pending TIBC 245 L (250-450) mcg/dL % Saturation Pending Unsat Iron Binding Pending Ferritin 496.4 H (24-336) ng/mL Total Bilirubin 1.10 H (0.2-1.0) mg/dL AST TNP ALT 33 (7-52) U/L Alkaline Phosphatase 139 H (34-104) U/L Ammonia (16-53) mol/L Total Creatine Kinase 88 (10-223) U/L CK-MB (CK-2) 16.9 H (0.6-6.3) ng/mL Troponin I 1.20 H* (<0.04) ng/mL C-Reactive Protein 318.00 H (< 5.00) mg/L B-Natriuretic Peptide ( - 100) pg/mL Total Protein 6.4 (6.4-8.9) g/dL Albumin 3.5 (3.2-5.2) g/dL Globulin 2.9 (2-4) g/dL Albumin/Globulin Ratio 1.2 (1-3) Lipase 27 (11.0-82.0) U/L Vitamin B12 1250 H (180-914) pg/mL Folate > 20.00 (>3.99) ng/mL TSH 0.93 (0.34-5.60) mcIU/mL Salicylates < 2.50 (<30) mg/dL Acetaminophen < 15 mcg/mL Serum Alcohol < 10 (<10) mg/dL 07/21/16 07/21/16 Range/Units 14:15 14:15 WBC (3.5-10.8) 10^3/ul RBC (4.0-5.4) 10^6/ul Hgb (14.0-18.0) g/dl Hct (42-52) % MCV (80-94) fL MCH (27-31) pg MCHC (31-36) g/dl RDW (10.5-15) % Plt Count (150-450) 10^3/ul MPV (7.4-10.4) um3 Immature Gran % (Auto) (0-9) % Neut % (Auto) (38-83) % Lymph % (Auto) (25-47) % Larue % (Auto) (1-9) % Eos % (Auto) (0-6) % Baso % (Auto) (0-2) % Absolute Neuts (auto) (1.5-7.7) 10^3/ul Absolute Lymphs (auto) (1.0-4.8) 10^3/ul Absolute Monos (auto) (0-0.8) 10^3/ul Absolute Eos (auto) (0-0.6) 10^3/ul Absolute Basos (auto) (0-0.2) 10^3/ul Absolute Nucleated RBC 10^3/ul Neutrophils % (38-83) % Band Neutrophils % (0-8) % Lymphocytes % (25-47) % Monocytes % (0-13) % Nucleated RBC % Normal RBC Morphology Basophilic Stippling Macrocytosis INR (Anticoag Therapy) (0.89-1.11) APTT (26.0-36.3) seconds D-Dimer, Quantitative (Less Than 230) ng/mL Sodium (133-145) mmol/L Potassium Chloride (101-111) mmol/L Carbon Dioxide (22-32) mmol/L Anion Gap BUN (6-24) mg/dL Creatinine (0.67-1.17) mg/dL Est GFR ( Amer) (>60) Est GFR (Non-Af Amer) (>60) BUN/Creatinine Ratio (8-20) Glucose (70-100) mg/dL Lactic Acid 1.7 (0.5-2.0) mmol/L Calcium (8.6-10.3) mg/dL Magnesium Iron TIBC (250-450) mcg/dL % Saturation Unsat Iron Binding Ferritin (24-336) ng/mL Total Bilirubin (0.2-1.0) mg/dL AST ALT (7-52) U/L Alkaline Phosphatase (34-104) U/L Ammonia 39 (16-53) mol/L Total Creatine Kinase (10-223) U/L CK-MB (CK-2) (0.6-6.3) ng/mL Troponin I (<0.04) ng/mL C-Reactive Protein (< 5.00) mg/L B-Natriuretic Peptide 275 H ( - 100) pg/mL Total Protein (6.4-8.9) g/dL Albumin (3.2-5.2) g/dL Globulin (2-4) g/dL Albumin/Globulin Ratio (1-3) Lipase (11.0-82.0) U/L Vitamin B12 (180-914) pg/mL Folate (>3.99) ng/mL TSH (0.34-5.60) mcIU/mL Salicylates (<30) mg/dL Acetaminophen mcg/mL Serum Alcohol (<10) mg/dL Microbiology and Other Data: Microbiology 07/21/16 16:50 Legionella Urinary Antigen - Final Urine Negative Legionella Streptococcus pneumoniae Ag Screen - Final Negative S. pneumo Antigen 07/21/16 16:20 Influenza Types A,B Antigen (ESTRADA) - Final Nasal Specimen received for Influenza A/B Molecular testing Assess/Plan/Problems-Billing Assessment: Mr. Paredes is an 81 yo male with a PMH of HTN and HLD who presented on with concern for weakness, fever/chills, and generalized malaise and was found to have RML pneumonia, as well as an elevated troponin, anemia, and CHERRY. - Patient Problems (1) Community acquired pneumonia Code(s): J18.9 - PNEUMONIA, UNSPECIFIED ORGANISM Comment: Leukocytosis improved, afebrile Legionella and s. pneumo antigens negative Continue ceftriaxone and azithromycin Supportive care (2) Anemia Code(s): D64.9 - ANEMIA, UNSPECIFIED Comment: Hemoccult negative, no apparent sources of bleeding or bruising noted. Labs appear to be more consistent with anemia of chronic disease, but per PCP records, pt's HH was 12.7 and 36 in April 2016 Vitamin B12 and folate normal. Serum iron low, TIBC mildly decreased, ferritin elevated. Patient denies ETOH use. Will touch base with hematology, given new anemia. (3) Elevated troponin Status: Acute Code(s): R74.8 - ABNORMAL LEVELS OF OTHER SERUM ENZYMES Comment: Suspect secondary to demand ischemia from sepsis No ischemic EKG changes Echo shows EF 50-55%, abnormal diastolic filling pattern, mild MR and TR Patient denies CP. Patient will need outpatient ischemic workup, once fully recovered. (4) Sepsis Comment: Patient meets SIRS criteria with fever and elevated WBC count. Patient meets SOFA criteria with a score of 2 for elevated creatinine. Source is likely RML pneumonia. Continue ceftriaxone and azithromycin. (5) Acute kidney injury Code(s): N17.9 - ACUTE KIDNEY FAILURE, UNSPECIFIED Comment: Per PCP records, patient has chronic kidney disease. Creatinine within baseline Patient's creatinine 1.5 in April 2016 (6) HTN (hypertension) Code(s): I10 - ESSENTIAL (PRIMARY) HYPERTENSION Comment: Ramipril on hold, patient is normotensive. (7) HLD (hyperlipidemia) Code(s): E78.5 - HYPERLIPIDEMIA, UNSPECIFIED Comment: Continue atorvastatin. (8) DVT prophylaxis Code(s): [id number] - Comment: SQ heparin Status and Disposition: Inpatient admission. D/c to home when medically stable.
[2016-07-23] MEDS: cefTRIAXone VIAL(*) 1,000 MG in NS 0.9% 50 ML* 50 ML IVPB SCH (14:33)
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
[2016-07-23] MEDS: Azithromycin IV(*) 500 MG in NS 0.9% 250 ML* 250 ML IVPB SCH (16:29)
[2016-07-24 05:15] LABS: Hematocrit 24 % (42-52); Hemoglobin 8.1 g/dl (14.0-18.0); Mean Corpuscular HGB Conc 33 g/dl (31-36); Mean Corpuscular Hemoglobin 34 pg (27-31); Mean Corpuscular Volume 101 fL (80-94); Mean Platelet Volume 9 um3 (7.4-10.4); Red Blood Count 2.41 10^6/ul (4.0-5.4); Red Cell Distribution Width 15 % (10.5-15); White Blood Count 9.4 10^3/ul (3.5-10.8)
[2016-07-24 05:19] LABS: Add Diff/Slide Review? Slide Review Added; Comments Flag Yes
[2016-07-24] MEDS: Heparin VIAL(*) 5000 UNITS/ML VIAL (FIVE THOUSAND) SUBCUT SCH ×2 (05:20→16:00)
[2016-07-24] MEDS: predniSONE TAB* 20 MG PO SCH (08:36)
[2016-07-24] MEDS: Atorvastatin* 40 MG TAB PO SCH (08:36)
[2016-07-24] MEDS: Aspirin EC Low Dose* 81 MG TAB.EC PO SCH (08:36)
[2016-07-24 08:54] VITALS: BP 127/45
[2016-07-24] MEDS ORDERED: ceFUROXime TAB(*) 250 MG PO SCH (09:00)
[2016-07-24] MEDS ORDERED: Azithromycin TAB* 250 MG PO SCH (09:00)
--- NOTE | 2016-07-24 09:45 | PN ---
Subjective Date of Service: 07/24/16 Interval History: Patient seen and examined at bedside. He states, "I really want to go home." Denies CP, SOB, abd pain, n/v. Son apprised of condition and need for follow-up with hematology and PCP. Family History: Unchanged from Admission Social History: Unchanged from Admission Past Medical History: Unchanged from Admission Objective Active Medications: Acetaminophen (Tylenol Tab*) 650 mg PO Q4H PRN PRN Reason: FEVER/PAIN Albuterol (Ventolin 2.5 Mg/3 Ml Neb.Angely*) 2.5 mg INH Q2H PRN PRN Reason: SOB/WHEEZING Aspirin (Aspirin Ec Low Dose*) 81 mg PO DAILY [facility] Last Admin: 07/24/16 08:36 Dose: 81 mg Atorvastatin Calcium (Lipitor*) 40 mg PO DAILY [facility] Last Admin: 07/24/16 08:36 Dose: 40 mg Azithromycin (Zithromax Tab*) 250 mg PO DAILY [facility] Last Admin: 07/24/16 08:36 Dose: 250 mg Cefuroxime Axetil (Ceftin Tab(*)) 250 mg PO BID [facility] Last Admin: 07/24/16 08:36 Dose: 250 mg Heparin Sodium (Porcine) (Heparin Vial(*)) 5,000 units SUBCUT Q8HR [facility] Last Admin: 07/24/16 05:20 Dose: 5,000 units Ondansetron HCl (Zofran Inj*) 4 mg IV Q6H PRN PRN Reason: NAUSEA Prednisone (Deltasone Tab*) 40 mg PO DAILY WITH [facility] Last Admin: 07/24/16 08:36 Dose: 40 mg Vital Signs 07/23/16 07/23/16 07/23/16 11:35 15:33 18:46 Temperature 98.6 F 98.4 F Pulse Rate 96 83 Respiratory 20 20 20 Rate Blood Pressure 135/65 134/57 (mmHg) O2 Sat by Pulse 97 97 Oximetry 07/23/16 07/24/16 07/24/16 19:47 00:08 02:20 Temperature 98.5 F 97.4 F Pulse Rate 77 65 88 Respiratory 20 16 20 Rate Blood Pressure 139/59 114/42 (mmHg) O2 Sat by Pulse 98 97 95 Oximetry 07/24/16 07/24/16 07:35 08:00 Temperature 98.4 F Pulse Rate 71 Respiratory 16 16 Rate Blood Pressure 127/45 (mmHg) O2 Sat by Pulse 97 Oximetry Oxygen Devices in Use Now: None Appearance: Elderly male, lying in bed, NAD Eyes: PERRLA Ears/Nose/Mouth/Throat: Mucous Membranes Moist Neck: NL Appearance and Movements; NL JVP Respiratory: Symmetrical Chest Expansion and Respiratory Effort, - - diminished r>l Cardiovascular: NL Sounds; No Murmurs; No JVD, RRR Abdominal: NL Sounds; No Tenderness; No Distention Extremities: No Edema Neurological: Alert and Oriented x 3 - [place] Lines/Tubes/Other Access: Clean, Dry and Intact Peripheral IV Nutrition: Taking PO's Result Diagrams: 07/24/16 04:26 07/23/16 05:19 Additional Lab and Data: Lab Results 07/21/16 07/21/16 07/21/16 Range/Units 14:15 14:15 14:15 WBC 17.9 H (3.5-10.8) 10^3/ul RBC 2.69 L (4.0-5.4) 10^6/ul Hgb 8.9 L (14.0-18.0) g/dl Hct 27 L (42-52) % MCV 100 H (80-94) fL MCH 33 H (27-31) pg MCHC 33 (31-36) g/dl RDW 15 (10.5-15) % Plt Count 230 (150-450) 10^3/ul MPV 10 (7.4-10.4) um3 Immature Gran % (Auto) 6 (0-9) % Neut % (Auto) 83.5 H (38-83) % Lymph % (Auto) 5.9 L (25-47) % [place] % (Auto) 9.9 H (1-9) % Eos % (Auto) 0.1 (0-6) % Baso % (Auto) 0.6 (0-2) % Absolute Neuts (auto) 15.0 H (1.5-7.7) 10^3/ul Absolute Lymphs (auto) 1.0 (1.0-4.8) 10^3/ul Absolute Monos (auto) 1.8 H (0-0.8) 10^3/ul Absolute Eos (auto) 0 (0-0.6) 10^3/ul Absolute Basos (auto) 0.1 (0-0.2) 10^3/ul Absolute Nucleated RBC 0.02 10^3/ul Neutrophils % 69 (38-83) % Band Neutrophils % 6 (0-8) % Lymphocytes % 13 L (25-47) % Monocytes % 12 (0-13) % Nucleated RBC % 0.1 Normal RBC Morphology Not Reportable Basophilic Stippling 1+ Macrocytosis 1+ INR (Anticoag Therapy) 1.43 H (0.89-1.11) APTT 28.5 (26.0-36.3) seconds D-Dimer, Quantitative 349 H (Less Than 230) ng/mL Sodium 132 L (133-145) mmol/L Potassium TNP Chloride 101 (101-111) mmol/L Carbon Dioxide 22 (22-32) mmol/L Anion Gap TNP BUN 39 H (6-24) mg/dL Creatinine 2.01 H (0.67-1.17) mg/dL Est GFR ( Amer) 41.0 (>60) Est GFR (Non-Af Amer) 31.9 (>60) BUN/Creatinine Ratio 19.4 (8-20) Glucose 105 H (70-100) mg/dL Lactic Acid (0.5-2.0) mmol/L Calcium 9.4 (8.6-10.3) mg/dL Magnesium TNP Iron Pending TIBC 245 L (250-450) mcg/dL % Saturation Pending Unsat Iron Binding Pending Ferritin 496.4 H (24-336) ng/mL Total Bilirubin 1.10 H (0.2-1.0) mg/dL AST TNP ALT 33 (7-52) U/L Alkaline Phosphatase 139 H (34-104) U/L Ammonia (16-53) mol/L Total Creatine Kinase 88 (10-223) U/L CK-MB (CK-2) 16.9 H (0.6-6.3) ng/mL Troponin I 1.20 H* (<0.04) ng/mL C-Reactive Protein 318.00 H (< 5.00) mg/L B-Natriuretic Peptide ( - 100) pg/mL Total Protein 6.4 (6.4-8.9) g/dL Albumin 3.5 (3.2-5.2) g/dL Globulin 2.9 (2-4) g/dL Albumin/Globulin Ratio 1.2 (1-3) Lipase 27 (11.0-82.0) U/L Vitamin B12 1250 H (180-914) pg/mL Folate > 20.00 (>3.99) ng/mL TSH 0.93 (0.34-5.60) mcIU/mL Salicylates < 2.50 (<30) mg/dL Acetaminophen < 15 mcg/mL Serum Alcohol < 10 (<10) mg/dL 07/21/16 07/21/16 Range/Units 14:15 14:15 WBC (3.5-10.8) 10^3/ul RBC (4.0-5.4) 10^6/ul Hgb (14.0-18.0) g/dl Hct (42-52) % MCV (80-94) fL MCH (27-31) pg MCHC (31-36) g/dl RDW (10.5-15) % Plt Count (150-450) 10^3/ul MPV (7.4-10.4) um3 Immature Gran % (Auto) (0-9) % Neut % (Auto) (38-83) % Lymph % (Auto) (25-47) % [place] % (Auto) (1-9) % Eos % (Auto) (0-6) % Baso % (Auto) (0-2) % Absolute Neuts (auto) (1.5-7.7) 10^3/ul Absolute Lymphs (auto) (1.0-4.8) 10^3/ul Absolute Monos (auto) (0-0.8) 10^3/ul Absolute Eos (auto) (0-0.6) 10^3/ul Absolute Basos (auto) (0-0.2) 10^3/ul Absolute Nucleated RBC 10^3/ul Neutrophils % (38-83) % Band Neutrophils % (0-8) % Lymphocytes % (25-47) % Monocytes % (0-13) % Nucleated RBC % Normal RBC Morphology Basophilic Stippling Macrocytosis INR (Anticoag Therapy) (0.89-1.11) APTT (26.0-36.3) seconds D-Dimer, Quantitative (Less Than 230) ng/mL Sodium (133-145) mmol/L Potassium Chloride (101-111) mmol/L Carbon Dioxide (22-32) mmol/L Anion Gap BUN (6-24) mg/dL Creatinine (0.67-1.17) mg/dL Est GFR ( Amer) (>60) Est GFR (Non-Af Amer) (>60) BUN/Creatinine Ratio (8-20) Glucose (70-100) mg/dL Lactic Acid 1.7 (0.5-2.0) mmol/L Calcium (8.6-10.3) mg/dL Magnesium Iron TIBC (250-450) mcg/dL % Saturation Unsat Iron Binding Ferritin (24-336) ng/mL Total Bilirubin (0.2-1.0) mg/dL AST ALT (7-52) U/L Alkaline Phosphatase (34-104) U/L Ammonia 39 (16-53) mol/L Total Creatine Kinase (10-223) U/L CK-MB (CK-2) (0.6-6.3) ng/mL Troponin I (<0.04) ng/mL C-Reactive Protein (< 5.00) mg/L B-Natriuretic Peptide 275 H ( - 100) pg/mL Total Protein (6.4-8.9) g/dL Albumin (3.2-5.2) g/dL Globulin (2-4) g/dL Albumin/Globulin Ratio (1-3) Lipase (11.0-82.0) U/L Vitamin B12 (180-914) pg/mL Folate (>3.99) ng/mL TSH (0.34-5.60) mcIU/mL Salicylates (<30) mg/dL Acetaminophen mcg/mL Serum Alcohol (<10) mg/dL Microbiology and Other Data: Microbiology 07/21/16 16:50 Legionella Urinary Antigen - Final Urine Negative Legionella Streptococcus pneumoniae Ag Screen - Final Negative S. pneumo Antigen 07/21/16 16:20 Influenza Types A,B Antigen (ESTRADA) - Final Nasal Specimen received for Influenza A/B Molecular testing Assess/Plan/Problems-Billing Assessment: Mr. Paredes is an 81 yo male with a PMH of HTN and HLD who presented on with concern for weakness, fever/chills, and generalized malaise and was found to have RML pneumonia, as well as an elevated troponin, anemia, and CHERRY. - Patient Problems (1) Community acquired pneumonia Code(s): J18.9 - PNEUMONIA, UNSPECIFIED ORGANISM Comment: Leukocytosis improved, afebrile Legionella and s. pneumo antigens negative Continue PO cefuroxime and azithromycin Supportive care (2) Anemia Code(s): D64.9 - ANEMIA, UNSPECIFIED Comment: Hemoccult negative, no apparent sources of bleeding or bruising noted. ? mild MDS - appreciate hematology consult. Outpatient follow-up with hematology in 4 weeks, appt scheduled. Repeat CBC next week and prior to hematology f/u. (3) Elevated troponin Status: Acute Code(s): R74.8 - ABNORMAL LEVELS OF OTHER SERUM ENZYMES Comment: Suspect secondary to demand ischemia from sepsis No ischemic EKG changes Echo shows EF 50-55%, abnormal diastolic filling pattern, mild MR and TR Patient denies CP. Patient will need outpatient ischemic workup, once fully recovered. (4) Sepsis Comment: Patient meets SIRS criteria with fever and elevated WBC count. Patient meets SOFA criteria with a score of 2 for elevated creatinine. Source is likely RML pneumonia. Continue cefuroxime and azithromycin. (5) Acute kidney injury Code(s): N17.9 - ACUTE KIDNEY FAILURE, UNSPECIFIED Comment: Per PCP records, patient has chronic kidney disease. Creatinine better than baseline. Patient's creatinine 1.5 in April 2016 (6) HTN (hypertension) Code(s): I10 - ESSENTIAL (PRIMARY) HYPERTENSION Comment: Normotensive Resume ramipril upon discharge. (7) HLD (hyperlipidemia) Code(s): E78.5 - HYPERLIPIDEMIA, UNSPECIFIED Comment: Continue atorvastatin. (8) DVT prophylaxis Code(s): ILF2903 - Comment: SQ heparin Status and Disposition: Inpatient admission. D/c to home with PCP and hematology f/u.
--- NOTE | 2016-07-25 22:06 | DS ---
DISCHARGE SUMMARY: DATE OF ADMISSION: 07/21/16 DATE OF DISCHARGE: 07/24/16 ATTENDING PHYSICIAN: Heather Rivera MD* (as dictated by Les Ramey NP). CONSULTING PHYSICIAN: Belem Gu MD, Hematology/Oncology. PRIMARY CARE PROVIDER: Randall López MD. PRIMARY DISCHARGE DIAGNOSES: 1. Community-acquired pneumonia. 2. Anemia, question of myelodysplastic syndrome. 3. Elevated troponin. SECONDARY DISCHARGE DIAGNOSES: 1. Hypertension. 2. Hyperlipidemia. MEDICATIONS AT DISCHARGE: 1. Atorvastatin 40 mg daily. 2. Gemfibrozil 600 mg b.i.d. 3. Ramipril 2.5 mg daily. 4. Prednisone 40 mg daily for 2 additional days. 5. Cefuroxime 500 mg b.i.d. for 5 additional days. 6. Azithromycin 250 mg daily for 2 additional days. DIAGNOSTIC TESTING DURING THIS ADMISSION: Transthoracic echocardiogram, conclusion: Fair quality study due to body habitus. Echo enhancement used to optimize endocardial visualization. Global left ventricular wall motion and contractility are within normal limits. The very base of the inferior wall on two chamber with and without echo contrast shows a mild delayed systolic , variant abnormal. The estimated ejection fraction is 50% to 55%. There is an E to A reversal of the mitral valve flow pattern suggestive of a diastolic dysfunction. Overall diastolic parameters most consistent with mildly abnormal diastolic filling. The right ventricular global systolic function is normal. The aortic valve leaflets are mildly thickened with normal function. There is mild mitral regurgitation. There is mild tricuspid regurgitation. There is mild dilatation of the ascending aorta 3.8 cm. No prior echo to compare. Chest x-ray, impression: Right mid lung consolidation. Recommend followup until resolution to exclude underlying pulmonary parenchymal pathology. HOSPITAL COURSE OF STAY: For full details, please refer to the H and P provided by Ken Antonio NP on 07/21/16. In summary, Mr. Paredes is an 81- year-old male who presented to the ER reporting progressive weakness, not feeling well, and apparent confusion. The patient was initially taken to convenient care who had concern for the patient's condition and he was referred to the ER for a more comprehensive workup. The patient denied any chest pain, but his son did note that the patient looked more short of breath. In the ER, the patient was found to be febrile with an elevated white count. He also was tachycardic. He was admitted with concern for sepsis secondary to pneumonia. The patient also had acute kidney injury and an elevated troponin. The patient was given fluids as well as Rocephin and azithromycin. The patient showed adequate response with the IV fluids and antibiotics. His renal function did improve. I was able to obtain records from Dr. López's office, which did show that the patient does have some chronic kidney disease at baseline and his creatinine did return within its normal baseline function. The patient's records show that his creatinine in April 2016 was 1.5 and he did improve to 1.3 here. The patient did show some notable anemia while here. Hemoccult was negative and we did some iron studies as well as B12 and folate, LDH and reticulocyte count. Initially, the patient's labs seemed most consistent with anemia of chronic disease; however, the patient's H and H in April 2016 was normal. Given these findings, I did ask for a consultation from Hematology which was much appreciated. It was felt that the patient may have an underlying myelodysplastic syndrome that has worsened with his illness. Hematology consultation also indicates that anemia of chronic renal disease is still in the differential and may have been exacerbated by his pneumonia. An SPEP was sent off and is still pending. The patient was recommended to follow up with Dr. Gu in approximately 4 weeks and have a CBC drawn just prior to his appointment with her. I did call and schedule that appointment for him and this is to occur on August 26. The patient was given requisition for a CBC just prior to that appointment. The patient was also advised to follow up with a CBC next week in order to make sure that his calcium remained stable from his discharge. The patient did have a physical therapy evaluation here in the hospital and no acute rehab needs were identified. I did speak with the patient's son who states that he does check in on him as well as a neighbor who the patient pays to check in on him as well. Mr. Paredes is fairly independent and does drive and is able to appropriately describe how he obtained food and how he takes care of himself. He has no other acute complaints. In regards to the patient's elevated troponin, this was thought to be secondary to demand ischemia from sepsis. His EKG showed no ischemic changes. Once the patient fully recovers, he is recommended to have an outpatient ischemic workup. CONCERNS AT DISCHARGE: Mr. Paredes will be discharged to home on 07/24/16 with followup with his PCP and with Dr. Gu. Outpatient followup needs, the patient needs to have ischemic workup including stress test which can be arranged through his PCP. The patient's direct Josie and SPEP labs are still pending. These may also be followed up as an outpatient. He is also to have a repeat CBC next week to ensure H and H as well as a followup in approximately 4 weeks. DIET: Heart healthy diet. ACTIVITY: As tolerated. CONDITION: Improved, stable. DISPOSITION: To home. TIME SPENT: Time spent on this discharge was approximately 45 minutes. Again, this is only a brief summary of the patient's hospital course of stay. For full details, please refer to the full medical record. If you have any further questions or need further assistance, please feel free to contact me at . LES RAMEY NP CC: Randall López MD* [id number]/CPS #: [id number] MTDD
== END 2016-07-24 16:30 | disposition home or self-care (01) | DRG 871 ==
LOC: ED 13:04 → MEDTELE 15:20
PROVIDERS: ADMIT Internal Medicine; ATTEND Internal Medicine
DX: A41.9 Sepsis, unspecified organism (principal); J18.9 Pneumonia, unspecified organism; N17.9 Acute kidney failure, unspecified; I24.8 Other forms of acute ischemic heart disease; D53.9 Nutritional anemia, unspecified; N18.3 Chronic kidney disease, stage 3 (moderate); E78.5 Hyperlipidemia, unspecified; R65.20 Severe sepsis without septic shock; R79.89 Other specified abnormal findings of blood chemistry; R74.8 Abnormal levels of other serum enzymes; I12.9 Hypertensive chronic kidney disease with stage 1 through stage 4 chronic kidney disease, or unspecified chronic kidney disease; D46.9 Myelodysplastic syndrome, unspecified; I08.1 Rheumatic disorders of both mitral and tricuspid valves; I77.819 Aortic ectasia, unspecified site; Z83.79 Family history of other diseases of the digestive system; Z81.1 Family history of alcohol abuse and dependence
CPT/HCPCS: 36415; 71010; 80048; 80053; 80076; 80320; 80329; 81003; 81015; 82140; 82272; 82550; 82553; 82570; 82607; 82728; 82746; 83540; 83550; 83605; 83615; 83690; 83880; 84155; 84165; 84300; 84443; 84466; 84484; 85025; 85045; 85379; 85610; 85730; 86140; 86880; 87040; 87502; 87899; 93005; 93306; 99203; 99223; A9270-GY; C8929; G0463; G0480; J0456; J0696; J1644; J7512

== ENCOUNTER 2017-02-01 16:06 | Inpatient (IN) | payer MEDICARE ==
--- NOTE | 2017-02-01 18:12 | ED ---
Lower Extremity - HPI Summary HPI Summary: 81 male presents to ED brought in by son, after being diagnosed with a lytic lesion at Dr Santana office earlier today. Sent over for blood work and further imaging. Patient was a hard historian. Received report from Dr Santana office and nursing. Patient states he began having pain in the left hip/thigh a few weeks ago. No known injury or trauma recalled. Pain is under control at this time. Patient has not been taking any medication for pain. States pain is worse with walking around and moving. But he is comfortable at rest and currently. Dr Santana would like patient to be admitted for further evaluation and work up. He is concerned of patient's risk of fracturing femur. Dr English and Dr Gu is also aware of patient. PMHx somewhat limited due to poor historian. - History of Current Complaint Chief Complaint: EDExtremityLower Stated Complaint: LT LEG PAIN Time Seen by Provider: 02/01/17 17:19 Hx Obtained From: Patient Mechanism Of Injury: Unknown Onset/Duration: Weeks Severity Initially: Severe Severity Currently: Mild Pain Intensity: 8 Pain Scale Used: 0-10 Numeric - when walking and moving, only 3/10 now while laying in stretcher Timing: Constant Location: Is Discrete @ - left thigh Character Of Pain: Sharp, Aching Associated Signs And Symptoms: Positive: Negative Aggravating Factor(s): Standing, Ambulation, Movement, Weight Bearing Alleviating Factor(s): Rest Able to Bear Weight: Yes - with pain - Allergies/Home Medications Allergies/Adverse Reactions: Allergies Allergy/AdvReac Type Severity Reaction Status Date / Time No Known Allergies Allergy Verified 07/21/16 11:09 PMH/Surg Hx/FS Hx/Imm Hx Endocrine/Hematology History: Denies: Hx Diabetes Cardiovascular History: Denies: Hx Hypertension Respiratory History: Denies: Hx Chronic Obstructive Pulmonary Disease (COPD) History: Denies: Hx Dialysis Musculoskeletal History: Denies: Hx Back Problems Sensory History: Reports: Hx Contacts or Glasses Denies: Hx Hearing Aid Opthamlomology History: Reports: Hx Contacts or Glasses Neurological History: Denies: Hx Dementia, Hx Seizures - Surgical History Surgery Procedure, Year, and Place: n/a - Immunization History Immunizations Up to Date: Yes Infectious Disease History: No Infectious Disease History: Denies: Traveled Outside the [place] in Last 30 Days - Family History Known Family History: Positive: Unknown - Level 5- confusion, Other - father of alcoholic liver cirrhosis Negative: Cardiac Disease, Diabetes - Social History Alcohol Use: None Hx Substance Use: No Substance Use Type: Reports: None Hx Tobacco Use: No Smoking Status (MU): Never Smoked Tobacco Review of Systems Constitutional: Negative Cardiovascular: Negative Respiratory: Negative Positive: Arthralgia, Myalgia - left thigh Skin: Negative Neurological: Negative All Other Systems Reviewed And Are Negative: Yes Physical Exam Triage Information Reviewed: Yes Vital Signs On Initial Exam: Initial Vitals Temp Pulse Resp BP Pulse Ox 96.8 F 68 17 159/53 98 02/01/17 16:13 02/01/17 16:13 02/01/17 16:13 02/01/17 16:13 02/01/17 16:13 Vital Signs Reviewed: Yes Appearance: Positive: Well-Appearing - laying comfortably in stretcher, No Pain Distress, Well-Nourished Skin: Positive: Warm, Skin Color Reflects Adequate Perfusion, Dry. Negative: Cold, Cyanosis @, Pale, Erythema @ Eyes: Positive: Conjunctiva Clear ENT: Positive: Hearing grossly normal Neck: Positive: Supple, Nontender Respiratory/Lung Sounds: Positive: Clear to Auscultation, Breath Sounds Present. Negative: Rales, Rhonchi, Wheezes Cardiovascular: Positive: Normal, RRR, Pulses are Symmetrical in both Upper and Lower Extremities. Negative: Murmur, Rub Abdomen Description: Positive: Nontender, Soft Bowel Sounds: Positive: Present Musculoskeletal: Positive: Normal, Strength/ROM Intact, Pain @ - left femur area with movement Neurological: Positive: Normal, Sensory/Motor Intact, Alert, Oriented to Person Place, Time, CN Intact II-III, Unable to Assess Gait - due to pain - [place] Coma Scale Best Eye Response: 4 - Spontaneous Best Motor Response: 6 - Obeys Commands Best Verbal Response: 5 - Oriented Coma Scale Total: 15 Diagnostics - Vital Signs Vital Signs Temp Pulse Resp BP Pulse Ox 02/01/17 16:13 96.8 F 68 17 159/53 98 - Laboratory Result Diagrams: 02/01/17 18:30 02/01/17 18:30 Lab Statement: Any lab studies that have been ordered have been reviewed, and results considered in the medical decision making process. - Radiology chest Xray Interpretation: No Acute Changes - IMPRESSION: NO ACTIVE DISEASE. Radiology Interpretation Completed By: Radiologist Lower Extremity Course/Dx - Course Course Of Treatment: lytic lesion found on left femur by Dr Santana earlier today , and is very concerned for femur fracture. obtained report from Dr Santana. Patient was not in any pain when laying in stretcher therefore no medication given for pain. normal vitals. no other complaints or concerns at this time. patient was a difficult historian. Was seen by Dr Santana due to pain in left left /hip for the past couple of months. appropriate labs obtained as asked by Dr Santana and Dr Gu, oncologist. Chest xray obtained and negative. Given normal saline due to acute kidney injury lab findings and hyperkalemia, incidentally found as patient, asymptomatic. Spoke with hospitalist Dr Zamora at 6:07pm who will admit on observation, manage CHERRY and hyperkalemia, and further skeletal survey/work up with oncology and ortho tomorrow, as discussed. - Diagnoses Differential Diagnosis/HQI/PQRI: Positive: Arthritis, Other - lytic lesion, CHERRY , hyperkalemia, leg pain Provider Diagnoses: Lytic bone lesion of left femur, Acute kidney injury, Hyperkalemia, Leg pain, left - Physician Notifications Discussed Care Of Patient With: Dr Zamora Time Discussed With Above Provider: 18:10 Instructed by Provider To: Admit As Observation Discharge - Discharge Plan Condition: Stable Disposition: ADMITTED TO [facility]
[2017-02-01 18:40] LABS: ABS Basophils 0.1 10^3/ul (0-0.2); ABS Eosinophils 0.4 10^3/ul (0-0.6); ABS Lymphocytes 1.5 10^3/ul (1.0-4.8); ABS Monocytes 0.5 10^3/ul (0-0.8); ABS Nucleated RBC 0 10^3/ul; Eosinophil % 6.5 % (0-6); Hematocrit 33 % (42-52); Hemoglobin 11.5 g/dl (14.0-18.0); Lymphocyte % 22.8 % (25-47); Mean Corpuscular HGB Conc 35 g/dl (31-36); Mean Corpuscular Hemoglobin 35 pg (27-31); Mean Corpuscular Volume 100 fL (80-94); Mean Platelet Volume 8 um3 (7.4-10.4); Nucleated Red Blood Cells % 0; Platelet Count 226 10^3/ul (150-450); Red Blood Count 3.31 10^6/ul (4.0-5.4); Red Cell Distribution Width 15 % (10.5-15); White Blood Count 6.6 10^3/ul (3.5-10.8)
--- NOTE | 2017-02-01 18:50 | RAD ---
INDICATION: Cardiac disease COMPARISON: July 21, 2016 TECHNIQUE: PA and lateral dual-energy views were obtained. FINDINGS: Bones/Soft Tissues: There are no acute bony findings. Cardiomediastinal: The cardiomediastinal silhouette is normal. Lungs: There are no infiltrates. There is essentially near complete resolution of the right-sided infiltrate Pleura: There are no pleural effusions. Other: None IMPRESSION: NO ACTIVE DISEASE.
[2017-02-01 18:54] LABS: EGFR Non-African American 41.8 (>60)
[2017-02-01] MEDS ORDERED: NS 0.9% 1000 ML* 1,000 ML IV ONE (19:02)
[2017-02-01] MEDS ORDERED: NS 0.9% 1000 ML* 1,000 ML IV SCH (19:45)
--- NOTE | 2017-02-01 21:31 | RAD ---
INDICATION: Metastatic bone survey COMPARISON: Left femur same date TECHNIQUE: Metastatic bone survey was performed. FINDINGS: 2 views cervical spine show degenerative changes but no lytic lesion. AP and lateral imaging of the thoracic and lumbar spine shows osteopenia with mild degenerative change but no lytic foci. 2 views the calvarium show no lytic lesions. Imaging of the femurs again shows the permeative lesion of the mid diaphysis of the left femur. Other lytic lesions are not seen. Imaging of both upper extremities shows no lytic foci. IMPRESSION: METASTATIC BONE SURVEY SHOWS NO ADDITIONAL DEFINITIVE LYTIC BONE LESIONS. HOWEVER, CONSIDER A BONE SCAN IT IS A MORE SENSITIVE MEANS TO EVALUATE FOR ADDITIONAL LESIONS
[2017-02-01] MEDS: Acetaminophen TAB* 325 MG PO PRN (22:46)
[2017-02-01] MEDS: Gemfibrozil TAB* 600 MG PO SCH (22:47)
[2017-02-01] MEDS: Heparin VIAL(*) 5000 UNITS/ML VIAL (FIVE THOUSAND) SUBCUT SCH (22:50)
--- NOTE | 2017-02-01 23:20 | HP ---
HISTORY AND PHYSICAL: DATE OF ADMISSION: 02/01/17 PROVIDER: Jaimee Elliott NP PRIMARY CARE DOCTOR: Dr. López. ATTENDING PHYSICIAN WHILE IN THE HOSPITAL: Dr. Oliver Castro * (report dictated by Jaimee Elliott NP) CHIEF COMPLAINT: Left leg pain, hyperkalemia, and acute kidney injury. HISTORY OF PRESENT ILLNESS: Mr. Paredes is an 81-year-old male patient who carries a history of hypertension, hyperlipidemia. The patient presents to the ER today following a left femur x-ray, which showed a lytic lesion in the femur. He was sent here for further evaluation of his left leg pain. He denies fatigue. Denies recent weight loss. Denies shortness of breath. Denies fevers, chills, nausea, vomiting, or diarrhea. Mr. Paredes states that he has been good health other than the increase in his left leg pain. He states that the leg pain started about 01/09/17 and has progressively gotten worse. He states that he was started on naproxen last Wednesday for the pain in his leg. He currently denies any other complaints. He does state that the pain is increased with walking. Because of his findings of the acute kidney injury and hyperkalemia, left femur lytic lesion we were asked to evaluate him for admission. PAST MEDICAL HISTORY: Significant for: 1. Hypertension. 2. Hyperlipidemia. PAST SURGICAL HISTORY: He denies. HOME MEDICATIONS: Include: 1. Ramipril 2.5 mg p.o. daily. 2. Lopid 600 mg p.o. b.i.d. 3. Lipitor 40 mg daily. ALLERGIES: He has no known drug allergies. FAMILY HISTORY: States that his father from cirrhosis. SOCIAL HISTORY: The patient states that he does not currently smokes. He states that he smoked a pack a day for 30 years and quit in 1969. He does not currently drink. Denies any illicit drug use. He lives home alone. His surrogate decision maker is his son, Kip Paredes. REVIEW OF SYSTEMS: There is no documented fever. He denies any significant weight change. There is no double vision. No dizziness. There was no ear discharge. He denies having any rhinorrhea. He denies sore throat. Denies difficulty swallowing. Denies chest pain. Denies shortness of breath. Denies cough. Denies nausea, vomiting, or diarrhea. Denies any urinary symptoms or frequency. Denies loss of consciousness. Review of 14 systems was completed. All others are negative. PHYSICAL EXAMINATION GENERAL: At this time, Mr. Paredes is an 81-year-old male. He is sitting on the stretcher in the ER. He does not appear to be in any acute distress. He is awake, alert, and oriented x3. VITAL SIGNS: Blood pressure 139/62, heart rate is 73, oxygen saturation is 99% , respirations are 17, temp is 96.8. HEENT: Atraumatic, normocephalic. Eyes: EOMs intact. Patient does wear glasses. Sclerae are anicteric. Not pale. Oral mucosa appears to be moist. NECK: Supple. LUNGS: Clear to auscultation bilaterally. No wheezes, rales, or rhonchi. CARDIAC: S1, S2. Regular rate and rhythm. No murmurs, rubs, or gallops. ABDOMEN: Soft and nontender. Bowel sounds are present x4. EXTREMITIES: He moves all extremities. Pulses are +2 throughout. He does have pain with movement of the left leg. NEUROLOGIC: He is awake. He is alert and oriented x3. [employer] were equal. Tongue is midline. Speech is clear. No gross focal deficits are noted. SKIN: Intact. DIAGNOSTIC STUDIES/LAB DATA: WBC is 6.6, RBC is 3.31, hemoglobin 11.5, hematocrit 33, platelet count is 226. ESR is 45. Sodium 143, potassium 5.4, chloride 110, bicarb is 26, BUN is 42, creatinine 1.59, glucose was 110. AST is 21, ALT is 20. CRP is 2.75. PSA is 3.556. Chest x-ray, no active disease. Outpatient left femur x-ray shows a lytic lesion, mid diaphysis of the femur suggest metastatic workup. The lesion measures 5 cm. ASSESSMENT AND PLAN: Mr. Paredes is an 81-year-old male who presented to the emergency room today for left leg pain. We were asked to evaluate him for the lytic lesion in his left femur. Plan is as follows: 1. Acute on chronic kidney injury, suspect this is related to dehydration. We will give him gentle hydration with normal saline, 1 L of bolus, and then he will get 75 cc an hour overnight. We will complete a bladder scan. This also could be related to naproxen. He recently started on naproxen on Wednesday. Would recommend avoiding nephrotoxic agents. 2. Hyperkalemia, suspect this is related to dehydration. We will continue with gentle hydration. 3. Lytic left femur bone lesion. We will complete a skeletal survey. Oncology is aware of the patient and service will be transferred to them in the a.m. 4. Anemia. History of anemia, currently stable. 5. Hypertension. We will continue on his ramipril. 6. Hyperlipidemia. We will continue Lopid 600 mg b.i.d. 7. DVT prophylaxis. The patient will be placed on heparin subcutaneous. 8. Code status. The patient is a full code. 9. FEN. He can have a regular diet. TIME SPENT: Time spent on this admission was 60 minutes, greater than half the time was spent [id number] with the patient obtaining medical history and doing physical, the other half of the time was spent going over his plan of care and implementing the plan of care. I did discuss this plan with my attending, Dr. Oliver Castro, and he is in agreement. JAIMEE TANA, [employer] COURT REPORTER [id number]/[facility] #: [id number] Mr Paredes is an 81M presenting with LE pain found to have a lytic lesion. He will be admitted for oncologic evaluation, pain control, and management of an CHERRY. MD EUN Reyes II
[2017-02-02] MEDS: Heparin VIAL(*) 5000 UNITS/ML VIAL (FIVE THOUSAND) SUBCUT SCH ×3 (06:22→21:59)
[2017-02-02] MEDS ORDERED: Influenza VAC *QUAD* 2017-18* 0.5 ML SYRINGE IM ONE (08:00)
[2017-02-02] MEDS ORDERED: Ramipril CAP* 2.5 MG PO SCH (09:00)
[2017-02-02] MEDS: Atorvastatin* 40 MG TAB PO SCH (09:26)
[2017-02-02] MEDS: Acetaminophen TAB* 325 MG PO PRN (09:26)
[2017-02-02] MEDS: Gemfibrozil TAB* 600 MG PO SCH ×2 (09:26→21:58)
--- NOTE | 2017-02-02 12:48 | PN ---
Progress Note - Progress Note Date of Service: 02/02/17 Note: Omar was seen in the office yesterday by Dr. Santana and sent to the emergency room for evaluation of the lytic bone lesion. Oncology is seeing him today. He should be non weight bearing on the affected leg. May be OOB to a chair and oob in a wheelchair. Needs to be worked up for a primary. I would recommend a CT chest, abdomen, and pelvis today with appropriate contrast to see if we can identify a primary. The chances of this being a primary bone tumor are exceedingly low but we still need to identify a primary carcinoma. We will discuss his surgical options after we see if we can identify the primary.
--- NOTE | 2017-02-02 15:19 | PN ---
Subjective Date of Service: 02/02/17 Interval History: Patient seen and examined. Left leg very uncomfortable, even with slight position changes. Must use his hands to manipulate his leg in bed. Primarily anterior thigh, deep central radiating pressure. Denies any SOB, no chest pain, no headache or dizziness, no bladder or bowel issues. Very hard of hearing. Objective Active Medications: Acetaminophen (Tylenol Tab*) 650 mg PO Q4H PRN PRN Reason: FEVER/PAIN Last Admin: 02/02/17 09:26 Dose: 650 mg Atorvastatin Calcium (Lipitor*) 40 mg PO DAILY [facility] Last Admin: 02/02/17 09:26 Dose: 40 mg Gemfibrozil (Lopid Tab*) 600 mg PO BID [facility] Last Admin: 02/02/17 09:26 Dose: 600 mg Heparin Sodium (Porcine) (Heparin Vial(*)) 5,000 units SUBCUT Q8HR [facility] Last Admin: 02/02/17 14:00 Dose: 5,000 units Oxycodone/Acetaminophen (Percocet 5/325 Tab*) 1 tab PO Q4H PRN PRN Reason: PAIN - MODERATE Ramipril (Altace Cap*) 2.5 mg PO DAILY [facility] Last Admin: 02/02/17 09:27 Dose: 2.5 mg Vital Signs - 8 hr 02/02/17 02/02/17 02/02/17 08:00 08:22 11:50 Temperature 98.0 F 97.9 F Pulse Rate 65 67 Respiratory 16 16 18 Rate Blood Pressure 133/50 138/47 (mmHg) O2 Sat by Pulse 97 99 Oximetry Oxygen Devices in Use Now: None Eyes: No Scleral Icterus, PERRLA Ears/Nose/Mouth/Throat: NL Teeth, Lips, Gums Neck: NL Appearance and Movements; NL JVP Respiratory: Symmetrical Chest Expansion and Respiratory Effort, Clear to Auscultation Cardiovascular: NL Sounds; No Murmurs; No JVD, RRR Abdominal: NL Sounds; No Tenderness; No Distention Extremities: No Edema, No Clubbing, Cyanosis - Pain to light palpation to left anterior thigh, gross motor/sensation intact Skin: No Rash or Ulcers Neurological: Alert and Oriented x 3, NL Sensation, NL Muscle Strength and Tone Nutrition: Taking PO's Result Diagrams: 02/01/17 18:30 02/02/17 05:30 Assess/Plan/Problems-Billing Assessment: - Patient Problems (1) Lytic bone lesion of left femur Current Visit: Yes Code(s): M89.8X5 - OTHER SPECIFIED DISORDERS OF BONE, THIGH SNOMED Code(s): 43682296 Comment: - Unclear etiology, need to locate primary source - Oncology consulted - Send for CT chest/abd/pelvis with contrast - Percocet for pain as needed - NWB as per ortho, high risk for fracture (2) Acute kidney injury Code(s): N17.9 - ACUTE KIDNEY FAILURE, UNSPECIFIED SNOMED Code(s): 81262704 Comment: - CHERRY on CKD - Gentle hydration - Baseline creat around 1.5 earlier this year (3) HLD (hyperlipidemia) Current Visit: No Status: Chronic Code(s): E78.5 - HYPERLIPIDEMIA, UNSPECIFIED SNOMED Code(s): 27932407 Comment: Continue atorvastatin. (4) HTN (hypertension) Code(s): I10 - ESSENTIAL (PRIMARY) HYPERTENSION SNOMED Code(s): 24999684 Comment: - BP controlled - continue home meds and monitor Status and Disposition: This is an 81 year old male that had significant left leg pain starting on January 09 that progressed to the point of not being able to ambulate/bear weight; that has a lytic lesion of the bone with unknown source. Remain inpatient Appreciate recs from all disciplines Pain control Follow scans Medical comanagement
[2017-02-02] MEDS ORDERED: Iodixanol* (CONTRAST) 320 MG/ML 100 ML SDV IV ONE (16:12)
[2017-02-02] MEDS: oxyCODONE/Acetamin 5/325 MG* TAB PO PRN (17:30)
--- NOTE | 2017-02-02 18:22 | RAD ---
Indication: Suspicious lytic lesion left femur. Contrast: Administered 89.1 ml of VISIPAQUE 320 mg/ml CT of the chest, abdomen and pelvis was performed with performed after oral and IV contrast administration. Coronal and sagittal reconstructed images were obtained. The inferior thyroid lobes demonstrates no evidence of nodules. Origins of the great vessels are unremarkable. There is right hilar adenopathy measuring 12 mm. The heart demonstrates no pericardial effusion. The lung vega demonstrate some scarring in the right lung base. Small nodule is noted in the anterior right upper lobe. No alveolar consolidation is noted. The visualized bony structures are grossly unremarkable. No obvious lytic lesions are identified. The liver is normal in size. There is increased vascular density the right lobe of liver. There appears to be communication between the portal vein intrahepatically portal hepatic shunt should BE considered. The gallbladder demonstrates no calcified gallstones, pericholecystic fluid or wall thickening. The spleen is normal in size. The pancreas demonstrates no mass or pancreatic ductal location. The common duct is not dilated. The kidneys demonstrates symmetric nephrograms with low density lesion in both kidneys consistent with cysts no evidence of ureteral obstruction is noted. Atherosclerotic aorta is noted. No retroperitoneal lymphadenopathy is noted. No dilated loops of bowel are noted. The colon is filled with stool. Diverticulosis without definite evidence of diverticulitis is noted. The bladder is unremarkable. The prostate and seminal vesicles are grossly unremarkable No free fluid is noted. No hernias are identified. IMPRESSION: There is shunting of the vessels from the portal vein to the hepatic veins. No focal masses are noted. No other masses or fluid collections are identified. No pulmonary lesions are noted although scarring is present in the right lower lobe as well as small nodule in the right anterior upper lobe.
--- NOTE | 2017-02-02 23:31 | CONS ---
ORTHOPEDIC CONSULTATION REPORT: DATE OF CONSULT: 02/02/17 PROVIDER: Dr. Juan English. CHIEF COMPLAINT: Left leg pain. HISTORY OF PRESENT ILLNESS: Mr. Paredes is an 81-year-old male patient, he has a history of hypertension and hyperlipidemia. He presented to the ER on 06/15 following a left femur x-ray at [facility] office, which showed a lytic lesion in the left femur. He was sent to [facility] for further evaluation of his leg pain. He states that he has been in good overall health other than increase in his left leg pain with onset 01/09/17. Pain has progressively gotten worse since and he denies a traumatic event at onset. Pain is worsened with walking as well as anytime that he engages in active range of motion or presses on the area of interest. The patient denies any fatigue, recent weight loss, shortness of breath, fevers, chills, nausea, vomiting, diarrhea. Since admission to the hospital, the patient states that his pain has been relatively well controlled when he is lying in bed, but when he gets up to walk or tries to move his leg, he is in a great deal of pain. PAST MEDICAL HISTORY: Significant for hypertension and hyperlipidemia. HOME MEDICATIONS: Include: 1. Ramipril 2.5 mg p.o. daily. 2. Lopid 600 mg p.o. b.i.d. 3. Lipitor 40 mg daily. ALLERGIES: No known drug allergies. SOCIAL HISTORY: The patient is a former smoker. REVIEW OF SYSTEMS: General: No known fever, no fatigue. No dizziness. Cardio : No chest pain. No shortness of breath. No irregular heart beats. Respiratory: No shortness of breath. No cough. GI: No nausea, vomiting, or diarrhea. Musculoskeletal: Only source of pain is patient's left leg. Neuro: Denies any numbness or tingling into his left leg. PHYSICAL EXAM: Mr. Paredes is an 81-year-old male, sitting in bed comfortably. He is alert. He is able to carry on meaningful conversation. He does become regularly sidetracked, but is easily redirected. Cardiac: S1, S2. Regular rate and rhythm. Lungs: Clear to auscultation bilaterally without wheezes, rales, or rhonchi. Abdomen: Soft and nontender. Bowel sounds present and normoactive. Extremities: Skin is intact over the left lower extremity, he does have an area of the anterior mid femur with that appears prominent. He is very tender over this area to palpation. He is able to participate in passive range of motion including flexion, extension, abduction and adduction of the hip without pain. He is able to passively flex and extend his knees without pain. He has very little to no active range of motion at the hip or knee without causing pain of the left anterior mid femur region. Vascular: Dorsalis pedis, posterior tibial pulses are 2+ bilaterally. Calves are soft, nontender. No erythema, no edema. Neuro: Dorsiflexion and plantar flexion are intact bilaterally. Sensation is intact distally. Vital Signs: Temperature 97.9, pulse 67, respiratory rate 18, oxygen saturation 99, blood pressure 138/42. DIAGNOSTIC STUDIES/LAB DATA: H and H 11.5/33, sed rate is 45, potassium 5.1, chloride 114, BUN 38, creatinine 1.41. Bone osseous survey done on 02/01, impression: Metastatic bone survey shows no additional definitive lytic bone lesions ASSESSMENT: Lytic left femur bone lesion. PLAN: Both Medicine and Oncology have been co-managing this patient. In an effort to establish a potential primary site of malignancy, a CT with contrast of chest, abdomen and pelvis have been ordered. The patient may be a candidate for a bone biopsy and placement of winnie after he is seen by Oncology, pending their findings. The patient will remain nonweightbearing. SAGAR DUNAWAY [id number]/[facility] #: [id number] A.[facility]. FOX MEM[facility]IAL HOSPITALXavier
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
[2017-02-03] MEDS: Heparin VIAL(*) 5000 UNITS/ML VIAL (FIVE THOUSAND) SUBCUT SCH ×3 (05:55→21:36)
--- NOTE | 2017-02-03 08:26 | PN ---
Progress Note - Progress Note Date of Service: 02/03/17 SOAP: Discussed with patient that he would be transferred to [place] today for further diagnosis and treatment. He is agreeable. []Current diagnosis is Left femur lytic bone lesion with no identified source of primary malignancy []He will remain nonweightbearing Due to absence of identification of primary malignancy on CT scans, transfer to Dr Kumar at [facility]. Waiting for bed assignment. All imaging studies must be sent with patient upon transfer, confirmed that this has occurred with radiology file room (life image)
[2017-02-03] MEDS: Gemfibrozil TAB* 600 MG PO SCH ×3 (09:51→21:36)
[2017-02-03] MEDS: Atorvastatin* 40 MG TAB PO SCH ×2 (10:47→16:00)
--- NOTE | 2017-02-03 11:04 | PN ---
Subjective Date of Service: 02/03/17 Interval History: Patient seen and examined. No acute overnight events. Denies SOB, no chest pain , thigh pain controlled at rest, moderate to severe with movement/transfers. Denies n/v. No plan for OR today based on CT scans. No further complaints noted. Objective Active Medications: Acetaminophen (Tylenol Tab*) 650 mg PO Q4H PRN PRN Reason: FEVER/PAIN Last Admin: 02/02/17 09:26 Dose: 650 mg Atorvastatin Calcium (Lipitor*) 40 mg PO DAILY [facility] Last Admin: 02/03/17 10:47 Dose: 40 mg Gemfibrozil (Lopid Tab*) 600 mg PO BID [facility] Last Admin: 02/03/17 10:47 Dose: 600 mg Heparin Sodium (Porcine) (Heparin Vial(*)) 5,000 units SUBCUT Q8HR [facility] Last Admin: 02/03/17 05:55 Dose: Not Given Oxycodone/Acetaminophen (Percocet 5/325 Tab*) 1 tab PO Q4H PRN PRN Reason: PAIN - MODERATE Last Admin: 02/02/17 17:30 Dose: 1 tab Vital Signs - 8 hr 02/03/17 02/03/17 02/03/17 04:54 07:36 08:00 Temperature 98.0 F 98.0 F Pulse Rate 71 67 Respiratory 16 16 16 Rate Blood Pressure 142/61 142/48 (mmHg) O2 Sat by Pulse 97 96 Oximetry Oxygen Devices in Use Now: None Appearance: Well appearing, NAD, alert Eyes: PERRLA Ears/Nose/Mouth/Throat: Mucous Membranes Moist, - - edentulous Neck: NL Appearance and Movements; NL JVP Respiratory: Symmetrical Chest Expansion and Respiratory Effort, Clear to Auscultation Cardiovascular: NL Sounds; No Murmurs; No JVD, RRR Abdominal: NL Sounds; No Tenderness; No Distention Extremities: No Edema - NWB, LLE, pain with light palpation to left anterior thigh, - Skin: No Rash or Ulcers Neurological: Alert and Oriented x 3, NL Muscle Strength and Tone Nutrition: Taking PO's - NPO canceled Result Diagrams: 02/01/17 18:30 02/03/17 09:14 Diagnostic Imaging: CT scan chest abdomen and pelvis negative for any masses per radiology report. Assess/Plan/Problems-Billing Assessment: - Patient Problems (1) Lytic bone lesion of left femur Code(s): M89.8X5 - OTHER SPECIFIED DISORDERS OF BONE, THIGH SNOMED Code(s): 90789087 Comment: - Unclear etiology, primary source not identified on CT chest/abd/pelvis, myeloma vs. other primary source? - Oncology following - Ortho following, declines surgery or biopsy given no primary source, recommending Musculoskeletal Oncology evaluation - Percocet for pain as needed - NWB as per ortho, high risk for fracture (2) Acute kidney injury Code(s): N17.9 - ACUTE KIDNEY FAILURE, UNSPECIFIED SNOMED Code(s): 27313319 Comment: - CHERRY on CKD - Gentle hydration - Baseline creat around 1.5 earlier this year - Continue to monitor (3) HLD (hyperlipidemia) Code(s): E78.5 - HYPERLIPIDEMIA, UNSPECIFIED SNOMED Code(s): 54777382 Comment: - Continue atorvastatin, stable (4) HTN (hypertension) Code(s): I10 - ESSENTIAL (PRIMARY) HYPERTENSION SNOMED Code(s): 90011627 Comment: - BP controlled - continue home meds and monitor Status and Disposition: This is an 81 year old male that had significant left leg pain starting on January 09 that progressed to the point of not being able to ambulate/bear weight; that has a lytic lesion of the bone with unknown primary source. - Per conversation with Dr. English today, cannot do biopsy/femur repair at this facility without primary source - Ortho recommending Musculoskeltal Oncology evaluate this case - Call to [facility], spoke with RIMA Neff in transfer center, they do not have this specialty available and also have no bed available - Discussed with SAGAR Melendez/Ortho Service, request ortho service to call [facility]/Dr. Fidelina Kumar to present case and see if they have bed available - Will initiate transfer if Dr. Kumar accepts case. - Time spent >60 minutes both face to face with patient and on phone with patient's son Murphy, health care proxy who accepts this POC.
--- NOTE | 2017-02-03 16:37 | PN ---
Progress Note - Progress Note Date of Service: 02/03/17 Note: Due to lack of an obvious primary malignancy and the possibility of a solitary plasmacytoma or the very remote possibility of a primary bone tumor such as a chondrosarcoma the lesion needs a biopsy. 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 However, the generally accepted practice among orthopedic oncologists is that the biopsy be performed at the definitively treating institution. Therefore, we have arranged for transfer. I spoke with Dr. Kumar who accepted to continue her care as a muscoloskeletal oncologist. He will be transferred there.
[2017-02-03] MEDS ORDERED: Sodium Polystyrene ORAL.SOL* 15 GM/60 ML BTL PO ONE (18:29)
--- NOTE | 2017-02-04 00:46 | DS ---
CC: Dr. López * DISCHARGE SUMMARY: DATE OF ADMISSION: 02/02/17 DATE OF DISCHARGE: ATTENDING PHYSICIAN: Martha Persaud MD * (DICTATED BY LINDY OLMEDO NP) HOSPITAL COURSE: This is a very pleasant 81-year-old male patient who was brought in to the emergency department by family for report of left leg pain. The patient had had some bone imaging with his primary physician for ongoing bone pain that is started in the left anterior thigh on 01/09/17 making it difficult for him to ambulate and eventually had some nonweightbearing status while at home. Bone scan revealed a lytic lesion of the left midthigh. Again, the patient was sent to the emergency department for further evaluation. He had a bone survey completed in the emergency department, which did not reveal any additional findings or any other lesions in the body at that time. He was admitted for observation. Oncology was consulted. He was admitted to the hospitalist service. Again, for further evaluation, he was sent for CAT scan of the chest, abdomen and pelvis and Orthopedics was also consulted. CAT scan did not reveal any new malignancies or solid tumors in the trunk. Therefore, it was difficult to identify any primary source lesion. Upon discussing this with Dr. English of Orthopedics, he decided that it would be not a good idea to biopsy the bone at this facility and discussed transferring the patient to [facility]. We reached out to Dr. Fidelina Kumar, who is a musculoskeletal oncologist at that facility. She accepted the patient on to her service; however, bed availability is still pending. The patient will be transferred. [facility] was notified. They are on standby for transport when bed does become available. Of significant note, the patient did have some acute renal failure, likely acute on chronic secondary to NSAID use and also some dehydration. His laboratory values at admission were sodium 143, potassium 5.4 , chloride 110, CO2 26, BUN 42, creatinine 1.59, GFR 53.7, glucose 110, calcium 10.3, AST 21, ALT 20, alk phos 93, CRP 2.75, total protein 7.1. CBC reads WBC 6.6, RBC 3.31, hemoglobin 11.5, hematocrit 33. MCV 100, MCH 35. Vital signs today revealed temperature 97.4, heart rate 75, respiratory rate 20, O2 saturation 96, blood pressure 118/43. After receiving fluid resuscitation, the patient's labs and renal function began to come back to baseline. Renal function today has improved significantly. BUN is now improving, was 38 yesterday with creatinine of 1.41. However, his potassium does remain moderately elevated. Sodium is within normal range of 139. I reached out to the patient's son today, Murphy, who is his health care proxy, who is in agreement with transferring his father to [facility] when a bed becomes available. The patient is very hard of hearing and understands that he does have to move, but I am not 100% sure that he understands exactly why the service is not available here. However, we did make ourselves available for any further questions that the family has and the patient does understand that. It would be in his best interest to move to the other facility for addition of surgery treatment, diagnostic workup and biopsy. Again, bed is not available but the patient will be ready and stable for discharge when that information is received. LINDY OLMEDO NP [id number]/[facility] #: [id number] MTDXavier
[2017-02-04] MEDS: Heparin VIAL(*) 5000 UNITS/ML VIAL (FIVE THOUSAND) SUBCUT SCH ×3 (05:29→22:50)
[2017-02-04 06:50] LABS: ABS Basophils 0.1 10^3/ul (0-0.2); ABS Eosinophils 0.4 10^3/ul (0-0.6); ABS Lymphocytes 1.3 10^3/ul (1.0-4.8); ABS Monocytes 0.7 10^3/ul (0-0.8); ABS Neutrophils 2.7 10^3/ul (1.5-7.7); ABS Nucleated RBC 0 10^3/ul; Eosinophil % 7.8 % (0-6); Hematocrit 28 % (42-52); Hemoglobin 9.9 g/dl (14.0-18.0); Lymphocyte % 26.1 % (25-47); Mean Corpuscular HGB Conc 35 g/dl (31-36); Mean Corpuscular Hemoglobin 35 pg (27-31); Mean Corpuscular Volume 100 fL (80-94); Mean Platelet Volume 8 um3 (7.4-10.4); Nucleated Red Blood Cells % 0; Platelet Count 172 10^3/ul (150-450); Red Blood Count 2.82 10^6/ul (4.0-5.4); Red Cell Distribution Width 15 % (10.5-15); White Blood Count 5.2 10^3/ul (3.5-10.8)
[2017-02-04 07:01] LABS: EGFR Non-African American 45.4 (>60)
[2017-02-04] MEDS: Gemfibrozil TAB* 600 MG PO SCH ×2 (08:32→21:41)
[2017-02-04] MEDS: Atorvastatin* 40 MG TAB PO SCH (08:32)
[2017-02-04] MEDS: oxyCODONE/Acetamin 5/325 MG* TAB PO PRN (15:31)
--- NOTE | 2017-02-04 17:02 | PN ---
Subjective Date of Service: 02/04/17 Interval History: Mr. Paredes states that he is feeling relatively well though he continues to have left leg pain. He denies other complaint including chest pain, SOB, nausea , or abdominal pain. Objective Active Medications: Acetaminophen (Tylenol Tab*) 650 mg PO Q4H PRN Atorvastatin Calcium (Lipitor*) 40 mg PO DAILY [facility] Gemfibrozil (Lopid Tab*) 600 mg PO BID [facility] Heparin Sodium (Porcine) (Heparin Vial(*)) 5,000 units SUBCUT Q8HR [facility] Sodium Chloride (Ns 0.9% 1000 Ml*) 1,000 mls @ 75 mls/hr IV PER RATE [facility] Oxycodone/Acetaminophen (Percocet 5/325 Tab*) 1 tab PO Q4H PRN Vital Signs: Temp Pulse Resp BP Pulse Ox 98.0 F 89 16 138/55 99 02/04/17 14:35 02/04/17 14:35 02/04/17 15:31 02/04/17 14:35 02/04/17 14:35 Oxygen Devices in Use Now: None Appearance: Elderly male lying in bed in NAD Eyes: No Scleral Icterus Ears/Nose/Mouth/Throat: Mucous Membranes Moist Neck: Trachea Midline Respiratory: Symmetrical Chest Expansion and Respiratory Effort Cardiovascular: NL Sounds; No Murmurs; No JVD, No Edema Lymphatic: No Cervical Adenopathy Extremities: No Edema Skin: No Rash or Ulcers Neurological: Alert and Oriented x 3, NL Muscle Strength and Tone Nutrition: Taking PO's Result Diagrams: 02/04/17 05:58 02/04/17 05:58 Diagnostic Imaging: CT scan chest abdomen and pelvis negative for any masses per radiology report. Assess/Plan/Problems-Billing Assessment: Mr. Paredes is an 81 yo M with a PMH of hypertension and hyperlipidemia who was admitted on 02/01/17 with left leg pain found to have acute kidney injury, hyperkalemia, and lytic lesion to left femur. - Patient Problems (1) Lytic bone lesion of left femur Comment: - No primary malignancy has been identified. Oncology consult appreciated. - Ortho consult appreciated, recommends that patient have biospy with Musculoskeletal Oncologist. Plan for transfer to [place] when bed available. - Percocet for pain as needed - NWB as per ortho, high risk for fracture (2) Acute kidney injury Comment: - At baseline, monitor. (3) HLD (hyperlipidemia) Comment: - Continue atorvastatin and gemfibrozil. (4) HTN (hypertension) Comment: - BP controlled - Ramipril on hold with acute kidney injury. (5) DVT prophylaxis Comment: SQ heparin Status and Disposition: Inpatient. Plan for transfer to [place] to Dr. Kumar's service when bed available.
[2017-02-04] MEDS: NS 0.9% 1000 ML* 1,000 ML IV SCH (23:03)
[2017-02-05] MEDS: Heparin VIAL(*) 5000 UNITS/ML VIAL (FIVE THOUSAND) SUBCUT SCH ×3 (05:58→21:38)
[2017-02-05] MEDS: Gemfibrozil TAB* 600 MG PO SCH ×2 (09:17→21:37)
[2017-02-05] MEDS: Atorvastatin* 40 MG TAB PO SCH (09:17)
[2017-02-05] MEDS: Acetaminophen TAB* 325 MG PO PRN (09:17)
--- NOTE | 2017-02-05 10:07 | PN ---
Subjective Date of Service: 02/05/17 Interval History: Mr. Paredes reports doing well this morning. He has no pain in his left leg unless he moves. He reports that this pain resolves immediately at rest. He does not want to try any new pain medications at this time. He denies other complaint including chest pain, SOB, nausea, or abdominal pain. Objective Active Medications: Acetaminophen (Tylenol Tab*) 650 mg PO Q4H PRN Atorvastatin Calcium (Lipitor*) 40 mg PO DAILY [facility] Gemfibrozil (Lopid Tab*) 600 mg PO BID [facility] Heparin Sodium (Porcine) (Heparin Vial(*)) 5,000 units SUBCUT Q8HR [facility] Sodium Chloride (Ns 0.9% 1000 Ml*) 1,000 mls @ 75 mls/hr IV PER RATE [facility] Oxycodone/Acetaminophen (Percocet 5/325 Tab*) 1 tab PO Q4H PRN Vital Signs - 8 hr 02/05/17 02/05/17 02/05/17 03:22 07:26 07:28 Temperature 98.1 F 97.5 F Pulse Rate 67 72 Respiratory 20 16 18 Rate Blood Pressure 140/48 138/58 (mmHg) O2 Sat by Pulse 98 97 Oximetry Oxygen Devices in Use Now: None Appearance: Male lying in bed in NAD Eyes: No Scleral Icterus Ears/Nose/Mouth/Throat: Mucous Membranes Moist Neck: Trachea Midline Respiratory: Symmetrical Chest Expansion and Respiratory Effort, Clear to Auscultation Cardiovascular: NL Sounds; No Murmurs; No JVD, No Edema Abdominal: NL Sounds; No Tenderness; No Distention Extremities: No Edema Skin: No Rash or Ulcers Neurological: Alert and Oriented x 3, NL Muscle Strength and Tone Nutrition: Taking PO's Result Diagrams: 02/04/17 05:58 02/04/17 05:58 Diagnostic Imaging: CT scan chest abdomen and pelvis negative for any masses per radiology report. Assess/Plan/Problems-Billing Assessment: Mr. Paredes is an 81 yo M with a PMH of hypertension and hyperlipidemia who was admitted on 02/01/17 with left leg pain found to have acute kidney injury, hyperkalemia, and lytic lesion to left femur. - Patient Problems (1) Lytic bone lesion of left femur Comment: - No primary malignancy has been identified. Oncology consult appreciated. - Ortho consult appreciated, recommends that patient have biospy with Musculoskeletal Oncologist. Plan for transfer to [place] when bed available, no bed as of this AM per transfer center. - Percocet for pain as needed - NWB as per ortho, high risk for fracture (2) Acute kidney injury Comment: - At baseline, monitor. (3) HLD (hyperlipidemia) Comment: - Continue atorvastatin and gemfibrozil. (4) HTN (hypertension) Comment: - BP controlled - Ramipril on hold with acute kidney injury. (5) DVT prophylaxis Comment: SQ heparin Status and Disposition: Inpatient. Plan for transfer to [place] to Dr. Kumar's service when bed available.
[2017-02-05] MEDS: NS 0.9% 1000 ML* 1,000 ML IV SCH (13:10)
[2017-02-05] MEDS: oxyCODONE/Acetamin 5/325 MG* TAB PO PRN (14:19)
[2017-02-06] MEDS: NS 0.9% 1000 ML* 1,000 ML IV SCH ×2 (02:54→14:25)
[2017-02-06] MEDS: Heparin VIAL(*) 5000 UNITS/ML VIAL (FIVE THOUSAND) SUBCUT SCH ×3 (06:39→21:21)
[2017-02-06] MEDS: Atorvastatin* 40 MG TAB PO SCH (09:09)
[2017-02-06] MEDS: Gemfibrozil TAB* 600 MG PO SCH ×2 (09:09→21:20)
[2017-02-06] MEDS: oxyCODONE/Acetamin 5/325 MG* TAB PO PRN ×2 (09:09→14:25)
--- NOTE | 2017-02-06 11:26 | PN ---
Subjective Date of Service: 02/06/17 Interval History: Mr. Paredes reports no change to his pain and no further complaint. Objective Active Medications: Acetaminophen (Tylenol Tab*) 650 mg PO Q4H PRN Atorvastatin Calcium (Lipitor*) 40 mg PO DAILY [facility] Gemfibrozil (Lopid Tab*) 600 mg PO BID [facility] Heparin Sodium (Porcine) (Heparin Vial(*)) 5,000 units SUBCUT Q8HR [facility] Sodium Chloride (Ns 0.9% 1000 Ml*) 1,000 mls @ 75 mls/hr IV PER RATE [facility] Oxycodone/Acetaminophen (Percocet 5/325 Tab*) 1 tab PO Q4H PRN Vital Signs - 8 hr 02/06/17 02/06/17 02/06/17 04:57 07:54 08:00 Temperature 97.8 F 98.1 F Pulse Rate 70 71 Respiratory 16 16 18 Rate Blood Pressure 146/62 140/48 (mmHg) O2 Sat by Pulse 98 98 Oximetry 02/06/17 09:09 Temperature Pulse Rate Respiratory 18 Rate Blood Pressure (mmHg) O2 Sat by Pulse Oximetry Oxygen Devices in Use Now: None Appearance: Male sitting up in bed in NAD Eyes: No Scleral Icterus Ears/Nose/Mouth/Throat: Mucous Membranes Moist Neck: Trachea Midline Respiratory: Symmetrical Chest Expansion and Respiratory Effort, Clear to Auscultation Cardiovascular: NL Sounds; No Murmurs; No JVD, No Edema Abdominal: NL Sounds; No Tenderness; No Distention Lymphatic: No Cervical Adenopathy Extremities: No Edema Skin: No Rash or Ulcers Neurological: Alert and Oriented x 3, NL Muscle Strength and Tone Nutrition: Taking PO's Result Diagrams: 02/04/17 05:58 02/04/17 05:58 Diagnostic Imaging: CT scan chest abdomen and pelvis negative for any masses per radiology report. Assess/Plan/Problems-Billing Assessment: Mr. Paredes is an 81 yo M with a PMH of hypertension and hyperlipidemia who was admitted on 02/01/17 with left leg pain found to have acute kidney injury, hyperkalemia, and lytic lesion to left femur. - Patient Problems (1) Lytic bone lesion of left femur Comment: - No primary malignancy has been identified. Oncology consult appreciated. - Ortho consult appreciated, recommends that patient have biospy with Musculoskeletal Oncologist. Plan for transfer to [place] when bed available, no bed as of this AM per transfer center. - Percocet for pain as needed - NWB as per ortho, high risk for fracture (2) Acute kidney injury Comment: - At baseline, monitor. (3) HLD (hyperlipidemia) Comment: - Continue atorvastatin and gemfibrozil. (4) HTN (hypertension) Comment: - BP controlled - Ramipril on hold with acute kidney injury. (5) DVT prophylaxis Comment: SQ heparin Status and Disposition: Inpatient. Plan for transfer to [place] to Dr. Kumar's service when bed available.
[2017-02-07] MEDS: NS 0.9% 1000 ML* 1,000 ML IV SCH ×2 (03:30→21:12)
[2017-02-07] MEDS: Heparin VIAL(*) 5000 UNITS/ML VIAL (FIVE THOUSAND) SUBCUT SCH ×3 (05:27→21:19)
[2017-02-07] MEDS: Gemfibrozil TAB* 600 MG PO SCH ×2 (08:01→21:12)
[2017-02-07] MEDS: oxyCODONE/Acetamin 5/325 MG* TAB PO PRN ×3 (08:01→21:17)
[2017-02-07] MEDS: Atorvastatin* 40 MG TAB PO SCH (08:01)
--- NOTE | 2017-02-07 08:40 | PN ---
Subjective Date of Service: 02/07/17 Interval History: Mr. Paredes denies any acute complaint today. His left leg continues to hurt only with movement. Objective Active Medications: Acetaminophen (Tylenol Tab*) 650 mg PO Q4H PRN Atorvastatin Calcium (Lipitor*) 40 mg PO DAILY [facility] Gemfibrozil (Lopid Tab*) 600 mg PO BID [facility] Heparin Sodium (Porcine) (Heparin Vial(*)) 5,000 units SUBCUT Q8HR [facility] Sodium Chloride (Ns 0.9% 1000 Ml*) 1,000 mls @ 75 mls/hr IV PER RATE [facility] Oxycodone/Acetaminophen (Percocet 5/325 Tab*) 1 tab PO Q4H PRN Vital Signs: Temp Pulse Resp BP Pulse Ox 97.7 F 72 18 147/57 98 02/07/17 03:45 02/07/17 03:45 02/07/17 08:01 02/07/17 03:45 02/07/17 03:45 Oxygen Devices in Use Now: None Appearance: Male lying in bed in NAD Eyes: No Scleral Icterus Ears/Nose/Mouth/Throat: Mucous Membranes Moist Neck: Trachea Midline Respiratory: Symmetrical Chest Expansion and Respiratory Effort, Clear to Auscultation Cardiovascular: NL Sounds; No Murmurs; No JVD, No Edema Abdominal: NL Sounds; No Tenderness; No Distention Lymphatic: No Cervical Adenopathy Extremities: No Edema Skin: No Rash or Ulcers Neurological: Alert and Oriented x 3, NL Muscle Strength and Tone Nutrition: Taking PO's Result Diagrams: 02/04/17 05:58 02/04/17 05:58 Diagnostic Imaging: . Assess/Plan/Problems-Billing Assessment: Mr. Paredes is an 81 yo M with a PMH of hypertension and hyperlipidemia who was admitted on 02/01/17 with left leg pain found to have acute kidney injury, hyperkalemia, and lytic lesion to left femur. - Patient Problems (1) Lytic bone lesion of left femur Comment: - No primary malignancy has been identified. Oncology consult appreciated. - Ortho consult appreciated, recommends that patient have biospy with Musculoskeletal Oncologist. Plan for transfer to [place] when bed available, no bed as of this AM per transfer center. - Percocet for pain as needed - NWB as per ortho, high risk for fracture (2) Acute kidney injury Comment: - At baseline, monitor. (3) HLD (hyperlipidemia) Comment: - Continue atorvastatin and gemfibrozil. (4) Anemia Comment: - Chronic. - Likely multifactorial with CKD and possible multiple myeloma vs metastic lesion in left femur. - No evidence of acute bleeding, stool occult negative during last hospitalization. (5) HTN (hypertension) Comment: - BP controlled - Ramipril on hold with acute kidney injury. (6) DVT prophylaxis Comment: SQ heparin Status and Disposition: Inpatient. Plan for transfer to [place] to Dr. Kumar's service when bed available.
[2017-02-07] MEDS ORDERED: Senna TAB PO PRN (11:15)
[2017-02-07] MEDS ORDERED: Polyethylene Glycol 3350* 17 GM PACKET PO PRN (11:15)
[2017-02-07] MEDS ORDERED: Docusate LIQ* 100 MG/10 ML UDC PO PRN (11:15)
[2017-02-08] MEDS: Heparin VIAL(*) 5000 UNITS/ML VIAL (FIVE THOUSAND) SUBCUT SCH ×3 (05:45→20:52)
[2017-02-08] MEDS: Gemfibrozil TAB* 600 MG PO SCH ×2 (08:07→20:52)
[2017-02-08] MEDS: Atorvastatin* 40 MG TAB PO SCH (08:07)
[2017-02-08] MEDS: oxyCODONE/Acetamin 5/325 MG* TAB PO PRN ×2 (08:07→19:22)
--- NOTE | 2017-02-08 18:16 | PN ---
Subjective Date of Service: 02/08/17 Interval History: Patient in a good mood today. Patient complained of no pain at time of interview. Patient denied CP, SOB, N/V, F/C, abdominal pain, or other pain. Patient tried to get up to the chair by himself according to patient, patient reminded again of NWB status. Family History: Unchanged from Admission Social History: Unchanged from Admission Past Medical History: Unchanged from Admission Objective Active Medications: Acetaminophen (Tylenol Tab*) 650 mg PO Q4H PRN PRN Reason: FEVER/PAIN Last Admin: 02/05/17 09:17 Dose: 650 mg Atorvastatin Calcium (Lipitor*) 40 mg PO DAILY [facility] Last Admin: 02/08/17 08:07 Dose: 40 mg Docusate Sodium (Colace Cap*) 100 mg PO DAILY PRN PRN Reason: CONSTIPATION Gemfibrozil (Lopid Tab*) 600 mg PO BID [facility] Last Admin: 02/08/17 08:07 Dose: 600 mg Heparin Sodium (Porcine) (Heparin Vial(*)) 5,000 units SUBCUT Q8HR [facility] Last Admin: 02/08/17 14:58 Dose: Not Given Oxycodone/Acetaminophen (Percocet 5/325 Tab*) 1 tab PO Q4H PRN PRN Reason: PAIN - MODERATE Last Admin: 02/08/17 08:07 Dose: 1 tab Polyethylene Glycol/Electrolytes (Miralax*) 17 gm PO DAILY PRN PRN Reason: CONSTIPATION Senna (Senokot Tab*) 1 tab PO BEDTIME PRN PRN Reason: CONSTIPATION Last Admin: 02/07/17 14:21 Dose: 1 tab Vital Signs - 8 hr 02/08/17 02/08/17 12:24 15:50 Temperature 97.9 F 98.2 F Pulse Rate 82 82 Respiratory 18 16 Rate Blood Pressure 134/47 98/69 (mmHg) O2 Sat by Pulse 96 98 Oximetry Oxygen Devices in Use Now: None Appearance: Patient is an 81yo male who appears younger than stated age and is sitting in the bed in NAD. Eyes: No Scleral Icterus, PERRLA Ears/Nose/Mouth/Throat: NL Teeth, Lips, Gums, Clear Oropharnyx, Mucous Membranes Moist Neck: NL Appearance and Movements; NL JVP, Trachea Midline Respiratory: Symmetrical Chest Expansion and Respiratory Effort, Clear to Auscultation Cardiovascular: NL Sounds; No Murmurs; No JVD, RRR, - - 1+ edema in B/L LE. Pulses 2+ in B/L Radial, PT/DP. Abdominal: NL Sounds; No Tenderness; No Distention, No Hepatosplenomegaly Lymphatic: No Cervical Adenopathy Extremities: No Clubbing, Cyanosis, - - Pain with manipulation and palpation of left femur. Skin: No Rash or Ulcers, No Nodules or Sclerosis Neurological: Alert and Oriented x 3, NL Sensation, NL Muscle Strength and Tone Result Diagrams: 02/04/17 05:58 02/04/17 05:58 Diagnostic Imaging: . Assess/Plan/Problems-Billing Assessment: Mr. Paredes is an 81 yo M with a PMH of hypertension and hyperlipidemia who was admitted on 02/01/17 with left leg pain found to have acute kidney injury, hyperkalemia, and lytic lesion to left femur. - Patient Problems (1) Lytic bone lesion of left femur Current Visit: Yes Status: Acute Code(s): M89.8X5 - OTHER SPECIFIED DISORDERS OF BONE, THIGH SNOMED Code(s): 25808970 Comment: No primary malignancy has been identified. Oncology consult appreciated. Ortho consult appreciated, recommends that patient have biospy with Musculoskeletal Oncologist. Plan for transfer to [place] when bed available, no bed as of this Afternoon per transfer center. Percocet for pain as needed NWB as per ortho, high risk for fracture Unable to discharge due NWB status. (2) Acute kidney injury Current Visit: No Status: Acute Code(s): N17.9 - ACUTE KIDNEY FAILURE, UNSPECIFIED SNOMED Code(s): 83430259 Comment: At baseline, monitor. (3) Anemia Current Visit: No Status: Acute Code(s): D64.9 - ANEMIA, UNSPECIFIED SNOMED Code(s): 030985265 Comment: Chronic. Likely multifactorial with CKD and possible multiple myeloma vs metastic lesion in left femur. No evidence of acute bleeding, stool occult negative during last hospitalization. (4) HLD (hyperlipidemia) Current Visit: No Status: Chronic Code(s): E78.5 - HYPERLIPIDEMIA, UNSPECIFIED SNOMED Code(s): 66838396 Comment: Continue atorvastatin and gemfibrozil. (5) HTN (hypertension) Current Visit: No Status: Chronic Code(s): I10 - ESSENTIAL (PRIMARY) HYPERTENSION SNOMED Code(s): 35145135 Comment: BP controlled Ramipril on hold with acute kidney injury. (6) DVT prophylaxis Current Visit: No Status: Acute Code(s): IDC2061 - SNOMED Code(s): 940723509 Comment: SQ heparin Status and Disposition: Inpatient. Plan for transfer to [place] to Dr. Kumar's service when bed available.
[2017-02-09] MEDS: Heparin VIAL(*) 5000 UNITS/ML VIAL (FIVE THOUSAND) SUBCUT SCH ×3 (05:55→21:18)
[2017-02-09] MEDS: oxyCODONE/Acetamin 5/325 MG* TAB PO PRN ×4 (05:57→21:17)
[2017-02-09 06:57] LABS: ABS Basophils 0.1 10^3/ul (0-0.2); ABS Eosinophils 0.4 10^3/ul (0-0.6); ABS Lymphocytes 1.3 10^3/ul (1.0-4.8); ABS Monocytes 0.6 10^3/ul (0-0.8); ABS Neutrophils 2.5 10^3/ul (1.5-7.7); ABS Nucleated RBC 0 10^3/ul; Eosinophil % 7.3 % (0-6); Hematocrit 28 % (42-52); Hemoglobin 9.6 g/dl (14.0-18.0); Lymphocyte % 27.2 % (25-47); Mean Corpuscular HGB Conc 34 g/dl (31-36); Mean Corpuscular Hemoglobin 35 pg (27-31); Mean Corpuscular Volume 102 fL (80-94); Mean Platelet Volume 8 um3 (7.4-10.4); Nucleated Red Blood Cells % 0.1; Platelet Count 160 10^3/ul (150-450); Red Blood Count 2.74 10^6/ul (4.0-5.4); Red Cell Distribution Width 15 % (10.5-15); White Blood Count 4.8 10^3/ul (3.5-10.8)
[2017-02-09 07:14] LABS: EGFR Non-African American 44.4 (>60)
[2017-02-09] MEDS: Atorvastatin* 40 MG TAB PO SCH (08:13)
[2017-02-09] MEDS: Gemfibrozil TAB* 600 MG PO SCH ×2 (08:13→21:17)
[2017-02-09] MEDS: Senna TAB PO SCH (10:24)
[2017-02-09] MEDS: Docusate CAP* 100 MG PO PRN (10:24)
--- NOTE | 2017-02-09 17:14 | PN ---
Subjective Date of Service: 02/09/17 Interval History: Patient complains of stable pain in leg, worse with movement. Patient discouraged by long hospital stay. Patient complains of mild constipation. Patient Denies CP, F/C, SOB, N/V, abdominal pain, dysuria, or other pain. Family History: Unchanged from Admission Social History: Unchanged from Admission Past Medical History: Unchanged from Admission Objective Active Medications: Acetaminophen (Tylenol Tab*) 650 mg PO Q4H PRN PRN Reason: FEVER/PAIN Last Admin: 02/05/17 09:17 Dose: 650 mg Atorvastatin Calcium (Lipitor*) 40 mg PO DAILY [facility] Last Admin: 02/09/17 08:13 Dose: 40 mg Docusate Sodium (Colace Cap*) 100 mg PO DAILY PRN PRN Reason: CONSTIPATION Last Admin: 02/09/17 10:24 Dose: 100 mg Gemfibrozil (Lopid Tab*) 600 mg PO BID [facility] Last Admin: 02/09/17 08:13 Dose: 600 mg Heparin Sodium (Porcine) (Heparin Vial(*)) 5,000 units SUBCUT Q8HR [facility] Last Admin: 02/09/17 14:59 Dose: 5,000 units Oxycodone/Acetaminophen (Percocet 5/325 Tab*) 1 tab PO Q4H PRN PRN Reason: PAIN - MODERATE Last Admin: 02/09/17 15:00 Dose: 1 tab Oxycodone/Acetaminophen (Percocet 5/325 Tab*) 2 tab PO Q4H PRN PRN Reason: PAIN - MODERATE TO SEVERE Last Admin: 02/09/17 10:24 Dose: 2 tab Polyethylene Glycol/Electrolytes (Miralax*) 17 gm PO DAILY PRN PRN Reason: CONSTIPATION Senna (Senokot Tab*) 1 tab PO DAILY [facility] Last Admin: 02/09/17 10:24 Dose: 1 tab Vital Signs - 8 hr 02/09/17 02/09/17 02/09/17 10:24 11:53 12:13 Temperature 97.7 F Pulse Rate 93 Respiratory 18 18 16 Rate Blood Pressure 141/55 (mmHg) O2 Sat by Pulse 96 Oximetry 02/09/17 02/09/17 02/09/17 15:00 15:26 16:42 Temperature 97.7 F Pulse Rate 71 Respiratory 18 20 18 Rate Blood Pressure 126/47 (mmHg) O2 Sat by Pulse 97 Oximetry Oxygen Devices in Use Now: None Appearance: Patient is an 81yo male who appears stated age and is sitting in the bed in NAD. Eyes: No Scleral Icterus, PERRLA Ears/Nose/Mouth/Throat: NL Teeth, Lips, Gums, Clear Oropharnyx, Mucous Membranes Moist Neck: NL Appearance and Movements; NL JVP, Trachea Midline Respiratory: Symmetrical Chest Expansion and Respiratory Effort, Clear to Auscultation Cardiovascular: NL Sounds; No Murmurs; No JVD, RRR, No Edema Abdominal: NL Sounds; No Tenderness; No Distention, No Hepatosplenomegaly Lymphatic: No Cervical Adenopathy Extremities: No Edema, No Clubbing, Cyanosis, - - Pain with any manipulation of LLE. Skin: No Rash or Ulcers, No Nodules or Sclerosis Neurological: Alert and Oriented x 3, NL Sensation, NL Muscle Strength and Tone , - Result Diagrams: 02/09/17 06:42 02/09/17 06:42 Diagnostic Imaging: . Assess/Plan/Problems-Billing Assessment: Mr. Paredes is an 81 yo M with a PMH of hypertension and hyperlipidemia who was admitted on 02/01/17 with left leg pain found to have acute kidney injury, hyperkalemia, and lytic lesion to left femur. - Patient Problems (1) Lytic bone lesion of left femur Current Visit: Yes Status: Acute Code(s): M89.8X5 - OTHER SPECIFIED DISORDERS OF BONE, THIGH SNOMED Code(s): 59770594 Comment: No primary malignancy has been identified. Oncology consult appreciated. Ortho consult appreciated, recommends that patient have biospy with Musculoskeletal Oncologist. Plan for transfer to [place] when bed available, no bed as of this Afternoon per transfer center. [facility] contacted, not sure patient would be eligible for discharge, would like biopsy first. Percocet for pain as needed NWB as per ortho, high risk for fracture Unable to discharge due NWB status. (2) Acute kidney injury Current Visit: No Status: Acute Code(s): N17.9 - ACUTE KIDNEY FAILURE, UNSPECIFIED SNOMED Code(s): 21441681 Comment: At baseline, monitor. (3) Anemia Current Visit: No Status: Acute Code(s): D64.9 - ANEMIA, UNSPECIFIED SNOMED Code(s): 045898520 Comment: Chronic. Likely multifactorial with CKD and possible multiple myeloma vs metastic lesion in left femur. No evidence of acute bleeding, stool occult negative during last hospitalization. (4) HLD (hyperlipidemia) Current Visit: No Status: Chronic Code(s): E78.5 - HYPERLIPIDEMIA, UNSPECIFIED SNOMED Code(s): 61835554 Comment: Continue atorvastatin and gemfibrozil. (5) HTN (hypertension) Current Visit: No Status: Chronic Code(s): I10 - ESSENTIAL (PRIMARY) HYPERTENSION SNOMED Code(s): 62253476 Comment: BP controlled Ramipril on hold with acute kidney injury. (6) DVT prophylaxis Current Visit: No Status: Acute Code(s): YFC1809 - SNOMED Code(s): 171825179 Comment: SQ heparin Status and Disposition: Inpatient. Plan for transfer to [place] to Dr. Kumar's service when bed available. Also contacted [facility].
[2017-02-10 06:27] LABS: ABS Basophils 0 10^3/ul (0-0.2); ABS Eosinophils 0.4 10^3/ul (0-0.6); ABS Lymphocytes 1.3 10^3/ul (1.0-4.8); ABS Monocytes 0.6 10^3/ul (0-0.8); ABS Neutrophils 3.1 10^3/ul (1.5-7.7); ABS Nucleated RBC 0 10^3/ul; Eosinophil % 7.3 % (0-6); Hematocrit 28 % (42-52); Hemoglobin 9.6 g/dl (14.0-18.0); Lymphocyte % 23.1 % (25-47); Mean Corpuscular HGB Conc 35 g/dl (31-36); Mean Corpuscular Hemoglobin 36 pg (27-31); Mean Corpuscular Volume 102 fL (80-94); Mean Platelet Volume 8 um3 (7.4-10.4); Nucleated Red Blood Cells % 0.1; Platelet Count 159 10^3/ul (150-450); Red Cell Distribution Width 14 % (10.5-15); White Blood Count 5.5 10^3/ul (3.5-10.8)
[2017-02-10] MEDS: Heparin VIAL(*) 5000 UNITS/ML VIAL (FIVE THOUSAND) SUBCUT SCH ×3 (06:36→21:36)
[2017-02-10 06:47] LABS: EGFR Non-African American 42.1 (>60)
[2017-02-10] MEDS: Atorvastatin* 40 MG TAB PO SCH (09:36)
[2017-02-10] MEDS: Gemfibrozil TAB* 600 MG PO SCH ×2 (09:36→21:36)
[2017-02-10] MEDS: Senna TAB PO SCH (09:36)
[2017-02-10] MEDS: oxyCODONE/Acetamin 5/325 MG* TAB PO PRN ×2 (09:36→15:06)
[2017-02-10] MEDS: Docusate CAP* 100 MG PO PRN (09:37)
--- NOTE | 2017-02-10 16:40 | PN ---
Progress Note - Progress Note Date of Service: 02/10/17 SOAP: Subjective: []Patient seen at bedside. Left leg pain is minimal while laying still, and becomes more present with movement. Denies chest pain, shortness of breath, leg numbness. Objective: [] Vital Signs Temp 98.2 F 02/10/17 07:32 Pulse 81 02/10/17 07:32 Resp 16 02/10/17 15:06 BP 146/54 02/10/17 07:32 Pulse Ox 98 02/10/17 07:32 Intake & Output 02/09/17 02/10/17 02/10/17 18:59 06:59 18:59 Intake Total 1010 0 1120 Output Total 250 675 350 Balance 760 -675 770 Intake: Oral 1010 0 1120 Output: Urine 250 675 350 Other: # Bowel Movements 0 0 1 Estimated Stool Amount Small Small # Voids 1 Laboratory Last Values WBC 5.5 10^3/ul (3.5-10.8) 02/10/17 06:04 RBC 2.70 10^6/ul (4.0-5.4) L 02/10/17 06:04 Hgb 9.6 g/dl (14.0-18.0) L 02/10/17 06:04 Hct 28 % (42-52) L 02/10/17 06:04 MCV 102 fL (80-94) H 02/10/17 06:04 MCH 36 pg (27-31) H 02/10/17 06:04 MCHC 35 g/dl (31-36) 02/10/17 06:04 RDW 14 % (10.5-15) 02/10/17 06:04 Plt Count 159 10^3/ul (150-450) 02/10/17 06:04 MPV 8 um3 (7.4-10.4) 02/10/17 06:04 Neut % (Auto) 57.0 % (38-83) 02/10/17 06:04 Lymph % (Auto) 23.1 % (25-47) L 02/10/17 06:04 [place] % (Auto) 11.8 % (1-9) H 02/10/17 06:04 Eos % (Auto) 7.3 % (0-6) H 02/10/17 06:04 Baso % (Auto) 0.8 % (0-2) 02/10/17 06:04 Absolute Neuts (auto) 3.1 10^3/ul (1.5-7.7) 02/10/17 06:04 Absolute Lymphs (auto) 1.3 10^3/ul (1.0-4.8) 02/10/17 06:04 Absolute Monos (auto) 0.6 10^3/ul (0-0.8) 02/10/17 06:04 Absolute Eos (auto) 0.4 10^3/ul (0-0.6) 02/10/17 06:04 Absolute Basos (auto) 0 10^3/ul (0-0.2) 02/10/17 06:04 Absolute Nucleated RBC 0 10^3/ul 02/10/17 06:04 Nucleated RBC % 0.1 02/10/17 06:04 ESR 45 mm/Hr (0-40) H 02/01/17 18:30 Sodium 144 mmol/L (133-145) 02/10/17 06:04 Potassium 4.7 mmol/L (3.5-5.0) 02/10/17 06:04 Chloride 118 mmol/L (101-111) H 02/10/17 06:04 Carbon Dioxide 21 mmol/L (22-32) L 02/10/17 06:04 Anion Gap 5 mmol/L (2-11) 02/10/17 06:04 BUN 47 mg/dL (6-24) H 02/10/17 06:04 Creatinine 1.58 mg/dL (0.67-1.17) H 02/10/17 06:04 Est GFR ( Amer) 54.1 (>60) 02/10/17 06:04 Est GFR (Non-Af Amer) 42.1 (>60) 02/10/17 06:04 BUN/Creatinine Ratio 29.7 (8-20) H 02/10/17 06:04 Glucose 110 mg/dL (70-100) H 02/10/17 06:04 Calcium 9.9 mg/dL (8.6-10.3) 02/10/17 06:04 Total Bilirubin 0.40 mg/dL (0.2-1.0) 02/04/17 05:58 AST 17 U/L (13-39) 02/04/17 05:58 ALT 17 U/L (7-52) 02/04/17 05:58 Alkaline Phosphatase 102 U/L (34-104) 02/04/17 05:58 C-React Prot High Sens 2.75 mg/L 02/01/17 18:30 Total Protein 5.7 g/dL (6.4-8.9) L 02/04/17 05:58 Total Protein (PEP) 7.0 g/dL (6.3 - 7.9) 02/01/17 18:30 Albumin 3.6 g/dL (3.2-5.2) 02/04/17 05:58 Albumin (PEP) 3.9 g/dL (3.4-4.7) 02/01/17 18:30 Globulin 2.1 g/dL (2-4) 02/04/17 05:58 Albumin/Globulin Ratio 1.7 (1-3) 02/04/17 05:58 Albumin/Globulin (PEP) 1.28 02/01/17 18:30 Tipxm-2-Ueswndoru 0.3 g/dL (0.1-0.3) 02/01/17 18:30 Nqywz-9-Gycazyjoe 1.1 g/dL (0.6-1.0) H 02/01/17 18:30 Mzoi-0-Meyfspne 1.1 g/dL (0.7-1.2) 02/01/17 18:30 Gamma Globulins 0.6 g/dL (0.6-1.6) 02/01/17 18:30 PEP Impression See comment 02/01/17 18:30 Prostate Specific Ag 3.556 ng/mL (0-4.000) 02/01/17 18:30 General: Alert and cooperative. NAD. Laying in bed LLE: Tender to palpation over anterior mid-femur. No obvious deformity. Patient unwilling to engage in any ROM at hip or knee due to pain. DP pulse 2+ Assessment: []left femur lytic lesion without identification of primary malignancy Plan: []Due to difficulty finding bed placement at [place], looking into [facility]. Optimally patient will have biospy with Musculoskeletal Oncologist. In the event [place] lacks bed availability and [place] requires biopsy prior to accepting patient, Dr. English may perform biopsy 02/11. Percocet for pain as needed Nonweightbearing, high risk for fracture
--- NOTE | 2017-02-10 17:16 | PN ---
Subjective Date of Service: 02/10/17 Interval History: Patient complains of constipation which was responsive to increased bowel regimen. Patient has pain in leg with movement. Patient has no other complaints. Patient is very pleasant. Patient and son educated on the current status of his condition. Family History: Unchanged from Admission Social History: Unchanged from Admission Past Medical History: Unchanged from Admission Objective Active Medications: Acetaminophen (Tylenol Tab*) 650 mg PO Q4H PRN PRN Reason: FEVER/PAIN Last Admin: 02/05/17 09:17 Dose: 650 mg Atorvastatin Calcium (Lipitor*) 40 mg PO DAILY [facility] Last Admin: 02/10/17 09:36 Dose: 40 mg Docusate Sodium (Colace Cap*) 100 mg PO BID [facility] Gemfibrozil (Lopid Tab*) 600 mg PO BID [facility] Last Admin: 02/10/17 09:36 Dose: 600 mg Heparin Sodium (Porcine) (Heparin Vial(*)) 5,000 units SUBCUT Q8HR [facility] Last Admin: 02/10/17 15:08 Dose: 5,000 units Oxycodone/Acetaminophen (Percocet 5/325 Tab*) 1 tab PO Q4H PRN PRN Reason: PAIN - MODERATE Last Admin: 02/10/17 09:36 Dose: 1 tab Oxycodone/Acetaminophen (Percocet 5/325 Tab*) 2 tab PO Q4H PRN PRN Reason: PAIN - MODERATE TO SEVERE Last Admin: 02/10/17 15:06 Dose: 2 tab Polyethylene Glycol/Electrolytes (Miralax*) 17 gm PO DAILY PRN PRN Reason: CONSTIPATION Last Admin: 02/10/17 15:06 Dose: 17 gm Senna (Senokot Tab*) 1 tab PO DAILY [facility] Last Admin: 02/10/17 09:36 Dose: 1 tab Vital Signs - 8 hr 02/10/17 02/10/17 09:36 15:06 Respiratory 18 16 Rate Oxygen Devices in Use Now: None Appearance: Patient is an 81yo male who appears stated age and is sitting in the bed in [facility]. Eyes: No Scleral Icterus, PERRLA Ears/Nose/Mouth/Throat: NL Teeth, Lips, Gums, Clear Oropharnyx, Mucous Membranes Moist Neck: NL Appearance and Movements; NL JVP, Trachea Midline Respiratory: Symmetrical Chest Expansion and Respiratory Effort, Clear to Auscultation Cardiovascular: NL Sounds; No Murmurs; No JVD, RRR, No Edema Abdominal: NL Sounds; No Tenderness; No Distention, No Hepatosplenomegaly Lymphatic: No Cervical Adenopathy Extremities: No Edema, No Clubbing, Cyanosis, - - Pain with any manipulation of the left leg. Skin: No Rash or Ulcers, No Nodules or Sclerosis Neurological: Alert and Oriented x 3, - - CN II-XII intact. Result Diagrams: 02/10/17 06:04 02/10/17 06:04 Diagnostic Imaging: . Assess/Plan/Problems-Billing Assessment: Mr. Paredes is an 81 yo M with a PMH of hypertension and hyperlipidemia who was admitted on 02/01/17 with left leg pain found to have acute kidney injury, hyperkalemia, and lytic lesion to left femur. - Patient Problems (1) Lytic bone lesion of left femur Current Visit: Yes Status: Acute Code(s): M89.8X5 - OTHER SPECIFIED DISORDERS OF BONE, THIGH SNOMED Code(s): 72465029 Comment: No primary malignancy has been identified. Oncology consult appreciated. Ortho consult appreciated, recommends that patient have biospy with Musculoskeletal Oncologist. Plan for transfer to [place] when bed available, no bed as of this Afternoon per transfer center. On Waiting List at [facility], Musculoskeletal oncologist is Kendrick Butterfield. Percocet for pain as needed NWB as per ortho, high risk for fracture Unable to discharge due NWB status. (2) Acute kidney injury Current Visit: No Status: Acute Code(s): N17.9 - ACUTE KIDNEY FAILURE, UNSPECIFIED SNOMED Code(s): 26503944 Comment: At baseline, monitor. (3) Anemia Current Visit: No Status: Acute Code(s): D64.9 - ANEMIA, UNSPECIFIED SNOMED Code(s): 315083006 Comment: Chronic. Likely multifactorial with CKD and possible multiple myeloma vs metastic lesion in left femur. No evidence of acute bleeding, stool occult negative during last hospitalization. (4) HLD (hyperlipidemia) Current Visit: No Status: Chronic Code(s): E78.5 - HYPERLIPIDEMIA, UNSPECIFIED SNOMED Code(s): 11648186 Comment: Continue atorvastatin and gemfibrozil. (5) HTN (hypertension) Current Visit: No Status: Chronic Code(s): I10 - ESSENTIAL (PRIMARY) HYPERTENSION SNOMED Code(s): 03652566 Comment: BP controlled Ramipril on hold with acute kidney injury. (6) Constipation Current Visit: Yes Status: Acute Code(s): K59.00 - CONSTIPATION, UNSPECIFIED SNOMED Code(s): 47683329 Comment: Probably related to narcotics. Increased Bowel Regimen. Had medium sized BM today. (7) DVT prophylaxis Current Visit: No Status: Acute Code(s): BNS1890 - SNOMED Code(s): 021672992 Comment: SQ heparin Status and Disposition: Inpatient. Plan for transfer to [place] to Dr. Kumar's service when bed available. Also on waiting list for [facility], their musculoskeletal oncologist is Dr. Kendrick Butterfield. Dr. Browne is willing to do biopsy tomorrow if needed, but this would be less than ideal as it runs the risk of disseminating cancer. Authorization started for [facility] Status.
[2017-02-10] MEDS: Docusate CAP* 100 MG PO SCH (21:36)
[2017-02-11] MEDS: Heparin VIAL(*) 5000 UNITS/ML VIAL (FIVE THOUSAND) SUBCUT SCH ×3 (06:03→22:54)
[2017-02-11] MEDS: oxyCODONE/Acetamin 5/325 MG* TAB PO PRN ×4 (06:03→22:56)
[2017-02-11] MEDS: Gemfibrozil TAB* 600 MG PO SCH ×2 (08:11→22:55)
[2017-02-11] MEDS: Senna TAB PO SCH (08:12)
[2017-02-11] MEDS: Docusate CAP* 100 MG PO SCH ×2 (08:12→22:55)
[2017-02-11] MEDS: Atorvastatin* 40 MG TAB PO SCH (08:12)
--- NOTE | 2017-02-11 09:23 | PN ---
Progress Note - Progress Note Date of Service: 02/11/17 Note: I spoke with Dylon with the hospitalist service yesterday and again this morning. We have had significant difficulty in getting a transfer for this patient. The orthopedist at [place] has asked that we perform the biopsy prior to any potential transfer. I have asked that that be done today in interventional radiology. I would like to speak with the interventional radiologist prior to this being performed about the optimal site to place the biopsy.
[2017-02-11] MEDS ORDERED: Morphine INJ* 4 MG/ML 1 ML CARPUJECT ONE (10:24)
[2017-02-11] MEDS: Morphine INJ* 4 MG/ML 1 ML CARPUJECT IV PRN ×2 (10:25→13:48)
--- NOTE | 2017-02-11 15:45 | RAD ---
HISTORY: Follow-up left femur fracture COMPARISONS: February 01, 2017 VIEWS: 8, Frontal and lateral views of the left femur FINDINGS: BONE DENSITY: Normal. BONES: There has been interval development of an angulated and displaced fracture through the lytic lesion of the left femoral diaphysis, consistent with pathologic fracture. There is approximately 30 degrees of varus angulation of the proximal fragment and 40 degrees of posterior angulation of the proximal fragment with suspected the distal fragment. JOINTS: There is no arthropathy. ALIGNMENT: There is no dislocation. SOFT TISSUES: Unremarkable. OTHER FINDINGS: None. IMPRESSION: THERE HAS BEEN INTERVAL DEVELOPMENT OF A ANGULATED AND DISPLACED PATHOLOGIC FRACTURE THROUGH THE LYTIC LESION OF THE FEMORAL DIAPHYSIS
--- NOTE | 2017-02-11 17:12 | PN ---
Subjective Date of Service: 02/11/17 Interval History: Mr. Paredes complained of pain with rolling in bed this AM and nursing staff noted that he had full dislocation of the femur. Subsequent xray confirmed. Patient reports being in more pain but it is improved with adjustment in pain regimen. He denies other complaint including chest pain, SOB, nausea, or abdominal pain. Plan discussed with Dr. Eduardo, Dr. Moffett and Dr. English. Family History: Unchanged from Admission Social History: Unchanged from Admission Past Medical History: Unchanged from Admission Objective Active Medications: Acetaminophen (Tylenol Tab*) 650 mg PO Q4H PRN Atorvastatin Calcium (Lipitor*) 40 mg PO DAILY CONNIE Docusate Sodium (Colace Cap*) 100 mg PO BID CONNIE Gemfibrozil (Lopid Tab*) 600 mg PO BID CONNIE Heparin Sodium (Porcine) (Heparin Vial(*)) 5,000 units SUBCUT Q8HR CONNIE Heparin Sodium (Porcine) (Heparin Vial(*)) 5,000 units SUBCUT Q8HR CONNIE Morphine Sulfate (Morphine Inj (Syringe)*) 4 mg IV Q2H PRN Oxycodone/Acetaminophen (Percocet 5/325 Tab*) 1 tab PO Q4H PRN Oxycodone/Acetaminophen (Percocet 5/325 Tab*) 2 tab PO Q4H PRN Polyethylene Glycol/Electrolytes (Miralax*) 17 gm PO DAILY PRN Senna (Senokot Tab*) 1 tab PO DAILY CONNIE Vital Signs: Temp Pulse Resp BP Pulse Ox 98.5 F 79 14 163/52 94 02/11/17 15:35 02/11/17 15:35 02/11/17 17:08 02/11/17 15:35 02/11/17 15:35 Oxygen Devices in Use Now: None Appearance: Male lying in bed in NAD Eyes: No Scleral Icterus Ears/Nose/Mouth/Throat: Mucous Membranes Moist Neck: Trachea Midline Respiratory: Symmetrical Chest Expansion and Respiratory Effort, Clear to Auscultation Cardiovascular: NL Sounds; No Murmurs; No JVD, No Edema Lymphatic: No Axillary Adenopathy Extremities: - - Obvious deformity to left mid femur with large lump to lateral side Skin: No Rash or Ulcers Neurological: Alert and Oriented x 3, NL Muscle Strength and Tone Result Diagrams: 02/10/17 06:04 02/10/17 06:04 Diagnostic Imaging: . Assess/Plan/Problems-Billing Assessment: Mr. Paredes is an 81 yo M with a PMH of hypertension and hyperlipidemia who was admitted on 02/01/17 with left leg pain found to have acute kidney injury, hyperkalemia, and lytic lesion to left femur. - Patient Problems (1) Lytic bone lesion of left femur Comment: - Now with dislocated fracture. - No primary malignancy has been identified. Oncology consult appreciated. - Ortho consult appreciated, no bed available in region that can accomodate a patient for othopedic oncology. [facility] will accept if biopsy performed here. To be completed in IR with anesthesia tomorrow. (2) Acute kidney injury Comment: - At baseline, monitor. (3) HLD (hyperlipidemia) Comment: - Continue atorvastatin and gemfibrozil. (4) Anemia Comment: - Chronic. - Likely multifactorial with CKD and possible multiple myeloma vs metastic lesion in left femur. No evidence of acute bleeding, stool occult negative during last hospitalization. (5) HTN (hypertension) Comment: - BP controlled - Ramipril on hold with acute kidney injury. (6) DVT prophylaxis Comment: - SQ heparin Status and Disposition: Inpatient. No bed available for orthopedic oncology services at any hospital in the region. Discussed possible transfer with [facility] again today, but still no bed available. Plan for biopsy tomorrow with possible transfer to [facility].
--- NOTE | 2017-02-11 19:55 | DS ---
CC: Dr. López * [facility] MEDICINE DISCHARGE SUMMARY: DATE OF ADMISSION: 02/02/17 DATE OF DISCHARGE: 02/11/17 PRIMARY CARE PHYSICIAN: Dr. López ATTENDING PHYSICIAN: Martha Davis MD * (dictation provided by Teodora Haywood NP ) PRIMARY DIAGNOSIS: Displaced fracture to left femur with lytic lesion. SECONDARY DIAGNOSES: 1. Hypertension. 2. Hyperlipidemia. MEDICATIONS: 1. Tylenol 650 mg p.o. every 4 hours p.r.n. 2. Atorvastatin 40 mg p.o. daily. 3. Colace 100 mg p.o. b.i.d. 4. Gemfibrozil 600 mg p.o. b.i.d. 5. Heparin 5000 units subcutaneously every 8 hours. 6. Morphine sulfate 2 mg IV every 2 hours p.r.n. 7. Oxycodone with acetaminophen 5/325 one to two tabs p.o. every 4 hours p.r.n. 8. MiraLAX 17 g p.o. daily p.r.n. 9. Senna 1 tab p.o. daily. HOSPITAL COURSE: Mr. Paredes is an 81-year-old male with past medical history of hypertension, hyperlipidemia who presented to the hospital on with concern for left leg pain. Please see dictated H and P from Jaimee Elliott NP for complete details. In brief, in the emergency room, patient had a femur x-ray which showed a lytic lesion to the femur. He stated that the leg pain had started on about 01/09/17 and had gotten progressively worse to the point where he was unable to walk. In the emergency room, in addition to the lytic lesion, he was found to have acute kidney injury with a BUN of 38 and a creatinine 1.41. He also had hypokalemia with potassium 5.1. Mr. Paredes was admitted to the hospital. He had a bone osseous survey on 06/15 which showed the following: "Metastatic bone survey shows no other additional definitive lytic bone lesions". He had a chest x-ray on 02/01/17 which showed the following: "No active disease". He went on for a chest, abdomen and pelvis CT which showed the following on 02/02/17: "There is shunting of the vessels from the portal vein to the hepatic vein. No focal masses are noted. No other masses or fluid collections are identified. No pulmonary lesions are noted although scarring is present in the right lower lobe , as well as a small nodule in the right anterior upper lobe". Patient was seen in consultation by Dr. English from Orthopedic Surgery, as well as Dr. Gabriel from Oncology. Dr. Gabriel from Oncology felt that this lytic lesion was likely a multiple myeloma, but that biopsy would need to be performed for diagnosis. Dr. English from Orthopedic Surgery felt that the patient would be better served with [facility] to perform the biopsy as these biopsies are typically performed at the definitively treating institutions. Mr. Paredes complained of increased pain overnight. On exam he was found to have an obvious deformity to the femur with clearly displaced fracture. A femur x-ray obtained today confirmed that he had an "angulated and displaced pathologic fracture through the lytic lesion of the femoral diaphysis". For this Mr. Paredes has had his pain medications increased. P[place]ton has also been placed. Mr. Paredes was initially accepted by Dr. Kumar at [facility]. However, over the ensuing days [facility] has not had a bed available and efforts were made to secure an alternate placement for Mr. Paredes. Today, finally, he has been offered a bed at [facility]. The accepting physician is yet to be identified. Mr. Paredes is medically stable for transfer to [facility]. DISPOSITION: [facility]. DIET: NPO. ACTIVITY: Bed rest. TIME TAKEN: Approximately 90 minutes were spent on the discharge of this patient; more than half the time was spent with him at the bedside reviewing the events leading up to this hospitalization, performing the physical examination, and reviewing the plan of care. TEODORA HAYWOOD NP [id number]/CPS #: [id number] EUN
[2017-02-11] MEDS: Morphine INJ* 2 MG/ML 1 ML SYRINGE (TWO MG - NEW SYRINGE VERSION) IV PRN ×2 (20:13→22:54)
--- NOTE | 2017-02-11 21:17 | RAD ---
HISTORY: Left femur fracture reduction COMPARISONS: February 11, 2017 at 2:43 PM VIEWS: 3, Frontal and lateral views of the left femur FINDINGS: BONE DENSITY: Normal. BONES: There is been interval reduction of the angulation of the femoral diaphyseal fracture. There is persistent displacement of approximately 50% medial displacement of the proximal fragment with respect to the distal fragment. Again noted is a lucent lesion of the femoral diaphysis. JOINTS: There is no arthropathy. ALIGNMENT: There is no dislocation. SOFT TISSUES: Unremarkable. OTHER FINDINGS: None. IMPRESSION: DISPLACED FRACTURE OF THE FEMORAL DIAPHYSIS WITH INTERVAL REDUCTION OF THE ANGULATION
[2017-02-12] MEDS: Morphine INJ* 2 MG/ML 1 ML SYRINGE (TWO MG - NEW SYRINGE VERSION) IV PRN (00:16)
[2017-02-12 00:51] VITALS: BP 134/52
[2017-02-12] MEDS ORDERED: Heparin VIAL(*) 5000 UNITS/ML VIAL (FIVE THOUSAND) SUBCUT SCH (22:00)
== END 2017-02-12 06:58 | disposition short-term general hospital (02) | DRG 565 ==
LOC: ED 16:06 → MED 19:31 → OBSVTOIN 02-02 15:00
PROVIDERS: ADMIT Hospitalist; ATTEND Internal Medicine Hematology & Oncology
DX: M84.852 Other disorders of continuity of bone, left pelvic region and thigh (principal); N17.9 Acute kidney failure, unspecified; E87.5 Hyperkalemia; M84.452A Pathological fracture, left femur, initial encounter for fracture; D53.9 Nutritional anemia, unspecified; E86.0 Dehydration; M89.9 Disorder of bone, unspecified; N18.3 Chronic kidney disease, stage 3 (moderate); R40.2362 Coma scale, best motor response, obeys commands, at arrival to emergency department; R40.2142 Coma scale, eyes open, spontaneous, at arrival to emergency department; R40.2252 Coma scale, best verbal response, oriented, at arrival to emergency department; E78.5 Hyperlipidemia, unspecified; I12.9 Hypertensive chronic kidney disease with stage 1 through stage 4 chronic kidney disease, or unspecified chronic kidney disease; R91.1 Solitary pulmonary nodule; K59.00 Constipation, unspecified; T39.395A Adverse effect of other nonsteroidal anti-inflammatory drugs [NSAID], initial encounter; Y92.009 Unspecified place in unspecified non-institutional (private) residence as the place of occurrence of the external cause; Z81.1 Family history of alcohol abuse and dependence; Z87.891 Personal history of nicotine dependence
CPT/HCPCS: 36415; 71020; 71260; 74177; 77075; 80048; 80053; 84153; 84155; 84165; 85025; 85652; 86141; 90686; A9270-GY; G0103; J1644; J2270; Q9967

== ENCOUNTER 2017-05-01 15:33 | Emergency (ER) | payer MEDICARE ==
[2017-05-01 15:44] VITALS: BP 150/79
--- NOTE | 2017-05-01 17:10 | UC ---
Abdominal Pain Male HPI - HPI Summary HPI Summary: Accompanied by son, he states he started having some low abdominal pain since yesterday and urinary incontinence. Denies flank pain, fever, or urgency. He was diagnosed with multiple myeloma an dhas started preparatory treatment with dexamethasone for the past 4 days. States that his apetite has decreased in the past week but he has been hydrating well. For the past 2 months his stools have been soft but formed, denies blood or mucus on them - History of Current Complaint Chief Complaint: UCAbdominalPain Stated Complaint: ABDPMINAL PAIN Hx Obtained From: Patient, Family/Proof Inspector Onset/Duration: Sudden Onset, Lasting Hours Severity Initially: Moderate Severity Currently: Moderate Pain Intensity: 4 Radiates: No Associated Signs And Symptoms: Positive: Urinary Symptoms - Risk Factors Cardiac Risk Factors: Hypertension - Allergies/Home Medications Allergies/Adverse Reactions: Allergies Allergy/AdvReac Type Severity Reaction Status Date / Time No Known Allergies Allergy Verified 05/01/17 15:45 PMH/Surg Hx/FS Hx/Imm Hx Previously Healthy: Yes Endocrine History: Dyslipidemia Cardiovascular History: Hypertension Cancer History: Other - multiple myeloma Other Cancer History: multiple myeloma - Surgical History Surgical History: Yes Surgery Procedure, Year, and Place: Left leg - Family History Known Family History: Positive: Unknown - Level 5- confusion, Other - father of alcoholic liver cirrhosis Negative: Cardiac Disease, Diabetes - Social History Alcohol Use: None Substance Use Type: None Smoking Status (MU): Never Smoked Tobacco - Immunization History Most Recent Influenza Vaccination: unk Most Recent Pneumonia Vaccination: sometime in past Review of Systems Constitutional: Negative Skin: Negative Gastrointestinal: Abdominal Pain Genitourinary: Urgency All Other Systems Reviewed And Are Negative: Yes Physical Exam Triage Information Reviewed: Yes Appearance: Well-Appearing, Well-Nourished Vital Signs: Initial Vital Signs Temp 99.0 F 05/01/17 15:41 Pulse 95 05/01/17 15:41 Resp 18 05/01/17 15:41 BP 150/79 05/01/17 15:41 Pulse Ox 98 05/01/17 15:41 Vital Signs Reviewed: Yes Eyes: Positive: Conjunctiva Clear ENT: Positive: Pharynx normal, TMs normal, Uvula midline Neck: Positive: Supple, Nontender, No Lymphadenopathy Respiratory: Positive: Chest non-tender, Lungs clear, Normal breath sounds, No respiratory distress, No accessory muscle use Cardiovascular: Positive: RRR, No Murmur, Pulses Normal, Brisk Capillary Refill Abdomen Description: Positive: No Organomegaly, Soft, Other: - tender on low abdomen b/l, negative CVA tenderness Bowel Sounds: Positive: Present Abd Pain Male Course/Dx - Course Course Of Treatment: Urinalysis positive for blood and protein, start course of antibiotics as prescribed, oral hydration, f/u with oncology on 05-03-17 and review urine culture results. - Differential Dx/Clinical Impression Provider Diagnoses: cystitis Discharge - Discharge Plan Condition: Stable Disposition: HOME Patient Education Materials: Urinary Tract Infection in Men (ED) Referrals: Randall López MD [Primary Care Provider] -
== END 2017-05-01 17:25 | disposition home or self-care (01) ==
LOC: UCEAST 15:33
DX: N30.90 Cystitis, unspecified without hematuria (principal); E78.5 Hyperlipidemia, unspecified; I10 Essential (primary) hypertension; Z85.79 Personal history of other malignant neoplasms of lymphoid, hematopoietic and related tissues
CPT/HCPCS: 81003; 87086